=== PATIENT | male | born 1955 | race Caucasian/White ===

== ENCOUNTER 2018-08-07 14:09 | Inpatient (IN) ==
[2018-08-07] MEDS ORDERED: 0.9 % Sodium Chloride 1,000 ML IVC ONE (14:16)
[2018-08-07] MEDS ORDERED: *HR* FentaNYL (PF) 100 MCG/2 ML VIAL IVP ONE (14:16)
[2018-08-07] MEDS ORDERED: Ondansetron 4 MG/2 ML VIAL IVP ONE (14:16)
--- NOTE | 2018-08-07 14:36 | Emergency Department Note ---
Disposition Clinical Impression: Abdominal pain, Vomiting, Ileus, unspecified Disposition: Admitted As Inpatient Condition: Fair Forms: ED Satisfaction Letter, Work/School Release Time of Disposition: 15:46 General Adult HPI - General Chief complaint: ED Abdominal Pain Stated complaint: SBO Time Seen by Provider: 08/07/18 14:15 Source: patient Limitations: no limitations - History of Present Illness Pain Scale: 8 Past Medical History - Past Medical History Medical history: Reports: diabetes, hypertension, renal disease Psychiatric history: Reports: depression, other - Social History Smoking Status: Never smoker Alcohol use: Reports: none Drug use: Reports: none Physical Exam - General Limitations: no limitations General appearance: alert, in no apparent distress Course Vital Signs Temperature 97.5 F L 08/07/18 14:13 Pulse Rate 93 08/07/18 14:13 Respiratory Rate 18 08/07/18 14:13 Blood Pressure 125/82 08/07/18 14:13 O2 Sat by Pulse Oximetry 97 08/07/18 14:13 Temperature 97.5 F L 08/07/18 14:13 Pulse Rate 96 08/07/18 15:26 Respiratory Rate 20 08/07/18 15:26 Blood Pressure 114/79 08/07/18 15:26 O2 Sat by Pulse Oximetry 96 08/07/18 15:26 Oxygen Delivery Oxygen Delivery Room Air Medical Decision Making - Lab Data Result diagrams: 08/07/18 14:25 08/07/18 14:25 Lab Results 08/07/18 08/07/18 08/07/18 Range/Units 14:25 14:25 14:25 WBC 8.8 (4.3-11.1) K/mcL RBC 4.01 L (4.19-5.50) M/mcL Hgb 12.7 L (12.9-16.9) g/dL Hct 37.9 (37.5-50.1) % MCV 94.5 (83.0-100.0) fL MCH 31.7 (28.0-33.3) pg MCHC 33.5 (31.6-35.5) g/dL RDW 13.6 (11.5-14.5) % Plt Count 116 L (140-400) K/mcL MPV 10.6 (9.4-12.4) fL Immature Gran % 0.6 (0-4) % Seg Neutrophils % 60.8 % Lymphocytes % 27.8 % Monocytes % 9.8 % Eosinophils % 0.9 % Basophils % 0.1 % Neutrophils # 5.4 (1.6-8.9) K/mcL Lymphocytes # 2.5 (0.6-4.6) K/mcL Monocytes # 0.9 (0.0-1.3) K/mcL Eosinophils # 0.1 (0.0-0.6) K/mcL Basophils # 0.0 (0.0-0.2) K/mcL Sodium 139 (136-145) mEq/L Potassium 4.3 (3.5-5.1) mEq/L Chloride 103 (98-107) mEq/L Carbon Dioxide 25 (23-29) mEq/L BUN 60 H (8-23) mg/dL Creatinine 2.84 H (0.70-1.30) mg/dL Est GFR ( Amer) 28 L (> 60) Est GFR (Non-Af Amer) 23 L (> 60) BUN/Creatinine Ratio 21 (6-26) Glucose 119 H (70-105) mg/dL Calculated Osmolality 306 H (280-300) Lactic Acid 2.0 (0.5-2.2) mmol/L Calcium 9.2 (8.6-10.3) mg/dL Creatine Kinase 234 H (30-223) Units/L Lipase 20 (11-82) Units/L Attestation Statement - Attestation Attestation: I, Miguelangel Pierson DO, examined this patient [id number] and my medical decision-making was reviewed with Dr. David Kwan, Resident Physician. I agree with the documented findings, disposition and treatment plan as described except to the extent set forth below. Please see my progress notes for details. 63-year-old male presents emergency room from the [facility] for evaluation of abdominal pain and distention. He seen at this morning secondary to belly pain and had a CT scan completed that showed dilated bowel loop and fluid levels with concern for small bowel obstruction. Patient did have a bowel movement this morning as well as Jojo. Patient is denying chest pain shortness of breath headache vision changes nausea vomiting or diarrhea. Patient did have one episode of nausea and vomiting prior to coming in today but otherwise has not had any prior to. Vital signs are stable on presentation. Patient is resting in the bed in no apparent distress. Lungs are clear heart is regular abdomen is distended with tenderness noted but no peritoneal symptoms. No positive fluid wave. Bowel sounds are present appear to be normal. Is no guarding or rigidity. No CVA tenderness. Patient sedation was appear to be stable pulses are intact. Patient denies any surgical history of his abdomen. Denies any history of bowel traction. Denies any history of liver disease or other symptoms. Patient will have detailed workup completed and reviewed. Labs including CBC chemistry troponin and liver function testing will be reviewed from the outside facility and urinalysis. CT imaging was reviewed but it does not have a contrasted has indeterminant presentation. Physical exam does not significantly justify bowel obstruction. Patient does have elevated kidney function comparison to previous labs are ordered today so concern is noted for renal insufficiency, vascular related etiology, dehydration, possible abdominal compartment syndrome. Patient's abdomen is distended but not tense. Consultation with surgery will be completed once repeat labs including a lactic acid CPK are resulted and repeat renal function testing. Fluids nausea medication pain medication will be provided as needed. Disposition will also be admission the hospital for continuation of care. See detailed documentation the physical exam, medical intervention, medical decision-making disposition the resident physician's note. No [facility] provider the patient's treatment course at this time. 1525 The on-call surgeon Dr. Nichols was contacted. He agrees this is most likely not a high-grade small bowel obstruction most likely an ileus. Patient's creatinine CPK and lactic acid are resolving or normal. Hospitals will be contacted for medical management of the symptoms and reevaluation. No other acute etiology noted at this point. No other acute concerns or issues no this time. Patient will be admitted for continuation of care and observation. No nasogastric tube is required at this time. The patient has not had any emesis while here in the emergency room.
--- NOTE | 2018-08-07 14:39 | Emergency Department Note ---
Disposition Clinical Impression: Vomiting, Ileus, unspecified Abdominal pain Qualifiers: Abdominal location: generalized Qualified Code(s): R10.84 - Generalized abdominal pain Disposition: Admitted As Inpatient Condition: Fair Forms: ED Satisfaction Letter, Work/School Release Time of Disposition: 15:53 Abdominal Pain HPI - General Chief Complaint: ED Abdominal Pain Stated Complaint: SBO Time Seen by Provider: 08/07/18 14:15 Source: patient, EMS Mode of arrival: EMS Limitations: no limitations Nursing Notes Reviewed: Yes Vital Signs Reviewed: Yes - History of Present Illness HPI Narrative: 63-year-old male presented to the emergency department from the [facility] for evaluation for small bowel obstruction. Patient went there because he is having abdominal pain he is not an inpatient there he lives at home. He said he has been vomiting for approximate 4 days he did not note any Brown or fecal smelling vomit. Patient says the epigastric pain described as 4 out of 10 nonradiating in his epigastrium. Patient has not had any abdominal surgeries. Patient has history of CKd, no cardiac history, hypertension, hypercholesterolemia as well as bipolar is him where he takes risperidone. Patient sent here for further evaluation of the [facility] he currently has no other complaints including no headaches, blurry vision, neck pain, back pain, fever, chest pain, shortness of breath, changes in bowel movement, pain with urination, pain or tingling down the arms or legs. Last bowel movement was this morning which was a normal bowel movement. He is still able to have some flatulence. Pain Scale: 8 All systems ED: reviewed and negative except as stated. Review of Systems: As Per HPI Abdominal Pain PMH - Past Medical History Medical history: Reports: diabetes, hypertension, renal disease Male Surgical History: Reports: no surgical history Psychiatric history: Reports: depression, other - Social History Smoking status: Never smoker Alcohol use: Reports: none Drug use: Reports: none Physical Exam - General Limitations: no limitations General appearance: alert, in no apparent distress - Head Head exam: atraumatic, normocephalic, normal inspection - Eye Eye exam: Present: normal appearance, PERRL, EOMI - ENT ENT exam: normal exam, normal oropharynx, mucous membranes moist - Neck Neck exam: Present: normal inspection, full ROM, trachea midline - Chest Chest inspection: Present: normal inspection, symmetric chest wall rise - Respiratory Respiratory exam: Present: normal lung sounds bilaterally - Cardiovascular Cardiovascular exam: Present: regular rate, normal rhythm, normal heart sounds - Abdominal Exam Abdominal exam: Present: soft, tenderness (Mild in the epigastrium), normal bowel sounds. Absent: distention, guarding, rebound, rigidity - Extremities Exam Extremities exam: Present: normal inspection, full ROM. Absent: tenderness, pedal edema - Back Exam Back exam: Present: normal inspection, full ROM. Absent: tenderness, CVA tenderness (R), CVA tenderness (L) - Neurological Exam Neurological exam: Present: alert, oriented X3 - Skin Skin exam: Present: warm, dry, intact, normal color Course Course Narrative: Will get repeat labs including CBC, BMP, CK, lipase. We will give IV fluids as well as fentanyl and Zofran. Depending on results we will contact surgery for recommendations for scans. Patient's labs were done labs reviewed from there include white blood cell count of 8.6, hemoglobin 14.7 sodium 137 potassium 4.9 glucose 176 creatinine 3.13 CO2 26 chloride 100 be 158 these were all compared with his old ones. Urinalysis was normal troponin negative CK 339 amylase 37 LFTs AST showing 28 ALT 34 alkaline phosphatase 90 albumin 4.1 protein 8.9 calcium 9.4. In the flu test was negative EKG was also the outside hospital showed no normal sinus rhythm report right bundle-branch block no other acute or ischemic changes. No signs of an STEMI - Consultations Consultation #1: Spoke with the on-call surgeon Dr. Nichols he says this is probably ileus not small bowel bowel obstruction but they will see the patient. Consult was placed. He said nothing further is needed at this time. Time: 15:46 Vital Signs Temperature 97.5 F L 08/07/18 14:13 Pulse Rate 93 08/07/18 14:13 Respiratory Rate 18 08/07/18 14:13 Blood Pressure 125/82 08/07/18 14:13 O2 Sat by Pulse Oximetry 97 08/07/18 14:13 Temperature 97.5 F L 08/07/18 14:13 Pulse Rate 96 08/07/18 15:26 Respiratory Rate 20 08/07/18 15:26 Blood Pressure 114/79 08/07/18 15:26 O2 Sat by Pulse Oximetry 96 08/07/18 15:26 Oxygen Delivery Oxygen Delivery Room Air Abdominal Pain - MDM Narrative Medical decision making narrative: 63-year-old male presents to the emergency department for small bowel chart. Presented here from the [place]. All labs reported PR course. We repeated a few labs. There was worry of abdominal compartment syndrome but with patient's lowering CK better in creatinine as well as a normal lactate is very low likely. Patient could have most likely ileus as he does not have a sources there is never had any abdominal surgery there is no signs of any inguinal hernias patient is an umbilical hernia but there is no bowel in that area. He has generalized abdominal tenderness but there is no localized area. We did not repeat the CT scans due to patient's chronic kidney disease. Patient will be admitted. I spoke with the on-call surgeon Dr. Nichols agree with her plan and a consult was placed. He says most likely again is an ileus and did not recommend NG tube. They will see him on the floor. I spoke with the hospitalist Dr. Freitas who agreed to let the patient to their service. Patient is admitted in stable condition. CT scan was done at the [facility] the report is on the patient's chart. The did show air fluid lines with fluid filled loops of bowel no noticeable transition site. This is either small bowel obstruction either complete or partial. - Medical Records Medical records reviewed: Yes I reviewed the patient's medical records. - Lab Data Lab results reviewed: Yes I reviewed the patient's lab results. Result diagrams: 08/07/18 14:25 08/07/18 14:25 Lab Results 08/07/18 08/07/18 08/07/18 Range/Units 14:25 14:25 14:25 WBC 8.8 (4.3-11.1) K/mcL RBC 4.01 L (4.19-5.50) M/mcL Hgb 12.7 L (12.9-16.9) g/dL Hct 37.9 (37.5-50.1) % MCV 94.5 (83.0-100.0) fL MCH 31.7 (28.0-33.3) pg MCHC 33.5 (31.6-35.5) g/dL RDW 13.6 (11.5-14.5) % Plt Count 116 L (140-400) K/mcL MPV 10.6 (9.4-12.4) fL Immature Gran % 0.6 (0-4) % Seg Neutrophils % 60.8 % Lymphocytes % 27.8 % Monocytes % 9.8 % Eosinophils % 0.9 % Basophils % 0.1 % Neutrophils # 5.4 (1.6-8.9) K/mcL Lymphocytes # 2.5 (0.6-4.6) K/mcL Monocytes # 0.9 (0.0-1.3) K/mcL Eosinophils # 0.1 (0.0-0.6) K/mcL Basophils # 0.0 (0.0-0.2) K/mcL Sodium 139 (136-145) mEq/L Potassium 4.3 (3.5-5.1) mEq/L Chloride 103 (98-107) mEq/L Carbon Dioxide 25 (23-29) mEq/L BUN 60 H (8-23) mg/dL Creatinine 2.84 H (0.70-1.30) mg/dL Est GFR ( Amer) 28 L (> 60) Est GFR (Non-Af Amer) 23 L (> 60) BUN/Creatinine Ratio 21 (6-26) Glucose 119 H (70-105) mg/dL Calculated Osmolality 306 H (280-300) Lactic Acid 2.0 (0.5-2.2) mmol/L Calcium 9.2 (8.6-10.3) mg/dL Creatine Kinase 234 H (30-223) Units/L Lipase 20 (11-82) Units/L - Radiology Data Radiology results reviewed: Yes I reviewed the patient's radiology results. - EKG Data EKG attestation: Yes I reviewed and interpreted this EKG. EKG results narrative: EKG done at 1454 review myself and the attending shows sinus rhythm at a rate of 96, OH 165, QRS 155, QTC [address] changes no acute T-wave changes. No signs of any other ischemia. There is a right bundle branch block which is on his old one. No other blocks. No heartstring or hypertrophy. No WPW/ Brugada/HOCM. Otherwise normal EKG. Attestation Statement - Attestation Attestation: I, Miguelangel Pierson DO, examined this patient [id number] and my medical decision-making was reviewed with Dr. David Kwan, Resident Physician. I agree with the documented findings, disposition and treatment plan as described except to the extent set forth below. Please see my progress notes for details.
[2018-08-07 14:42] LABS: Basophils % 0.1 %; Eosinophils # 0.1 K/mcL (0.0-0.6); Eosinophils % 0.9 %; Hematocrit 37.9 % (37.5-50.1); Hemoglobin 12.7 g/dL (12.9-16.9); Immature Granulocytes % 0.6 % (0-4); Lymphocytes # 2.5 K/mcL (0.6-4.6); Lymphocytes % 27.8 %; Mean Corpuscular HGB Conc 33.5 g/dL (31.6-35.5); Mean Corpuscular Hemoglobin 31.7 pg (28.0-33.3); Mean Corpuscular Volume 94.5 fL (83.0-100.0); Mean Platelet Volume 10.6 fL (9.4-12.4); Monocytes # 0.9 K/mcL (0.0-1.3); Monocytes % 9.8 %; Neutrophils # 5.4 K/mcL (1.6-8.9); Platelet Count 116 K/mcL (140-400); Red Blood Count 4.01 M/mcL (4.19-5.50); Red Cell Distribution Width 13.6 % (11.5-14.5); Segmented Neutrophils % 60.8 %
[2018-08-07 15:02] LABS: Calcium 9.2 mg/dL (8.6-10.3); Potassium 4.3 mEq/L (3.5-5.1)
[2018-08-07] MEDS ORDERED: GuaiFENesin Liq 200 MG/10 ML UDC PO PRN (16:19)
[2018-08-07] MEDS ORDERED: Dextrose Gel 15 GM/37.5 ML TUBE PO PRN ×2 (16:22)
[2018-08-07] MEDS ORDERED: Acetaminophen 325 MG TABLET PO PRN (16:22)
[2018-08-07] MEDS ORDERED: *HR* Dextrose 50 % in Water (Syg) 50 ML SYRINGE IVP PRN (16:22)
[2018-08-07] MEDS ORDERED: D5% in Water 1,000 ML IVC PRN (16:22)
[2018-08-07] MEDS ORDERED: Naloxone 0.4 MG/ML INJ IVP PRN (16:22)
[2018-08-07] MEDS ORDERED: 0.9 % Sodium Chloride 1,000 ML IVC SCH (16:30)
[2018-08-07] MEDS ORDERED: Insulin LISPRO 300 UNITS/3 ML VIAL SQ SCH ×2 (16:30→21:00)
--- NOTE | 2018-08-07 16:47 | Internal Med History&Physical ---
<MarlensugeydemetriusTeto conn - Last Filed: 08/07/18 17:45> Date of Encounter: 08/07/18 Time of Encounter: 15:30 Internal Medicine - H&P: HPI Chief complaint: Abdominal pain/N/V Admitted From: Emergency Dept Plans for Post Hospital Care: Home History of present illness: Mr. Rodriguez is a 63 year old male w/PMH of diabetes controlled by oral medication , HTN, HLD, CKD, seasonal allergies, gout, anxiety, and bipolar depression presents from the [facility] w/CC of abominal pain, nausea, and vomiting for the past four days. Pt. denies coffee-ground emesis or stool in emesis. Denies nausea or vomiting today. States he had small bowel movement this morning that was brown and formed. Also reports he has been passing gas through bowels. CT of the abdomen/pelvis at [facility] today shows dilated fluid-filled loops of small bowel with differential air-fluid levels. Findings suggest a high-grade partial versus early complete small bowel obstruction. The majority of L1 dilation is noted within jejunum and probably the proximal ileum. Transition point is probably present within the LLQ where there is surrounding mesenteric engorgement. Pt. denies recent illness, fever, chills, headache, changes in vision, unusual bleeding, chest pain, shortness of breath, dizziness, lightheadedness, numbness , tingling, pre-syncope, or syncope. Past Med Surg Social Fam HX - Past Medical History Source: patient, old records reviewed Medical history: diabetes, hyperlipidemia, hypertension, renal disease, other ( Gout) Psychiatric history: anxiety, depression (Bipolar) - Social History Smoking Status: Never smoker Alcohol use: none Drug use: none Activity Level: Independent ambulation Recent Out of Country Travel Within the Last 8 Weeks: No Exposure or Possible Exposure to Illness During Travel: No - Family History Father Race: Family Member Ethnicity: Non- Living Status: Age at : 86 Cause of : PE Hx Family Cardiac Disorders: Yes (PE) Mother Race: Family Member Ethnicity: Non- Living Status: Age at : 52 Cause of : Throat cancer Hx Family Cancer: Yes (Throat) Brother Race: Family Member Ethnicity: Non- Living Status: Age at : 28 Cause of : Aneurysm Hx Family Cardiac Disorders: Yes (Aneurysm) Sister Race: Family Member Ethnicity: Non- Living Status: Still Living Hx Family Psychosocial Disorders: Yes (Manic depression) Internal Medicine - H&P: Meds Allopurinol [Zyloprim 100 MG] 400 mg PO DAILY 08/07/18 [History] Amoxicillin/Clavulanate [Augmentin] 875 mg PO BIDWM 08/07/18 [History] Cetirizine HCl [Zyrtec] 10 mg PO DAILY 08/07/18 [History] Cholecalciferol (D-3) [Vitamin D] 1,000 unit PO DAILY 08/07/18 [History] Gemfibrozil [Lopid] 300 mg PO BIDWM 08/07/18 [History] GlipiZIDE [Glipizide ER] 10 mg PO BID 08/07/18 [History] Guaifenesin [Cough Syrup] 10 ml PO Q4HR PRN 08/07/18 [History] LORazepam [Ativan] 1 mg PO BID 08/07/18 [History] Lisinopril [Zestril] 10 mg PO DAILY 08/07/18 [History] Loperamide HCl [Anti-Diarrheal] 2 mg PO QID PRN 08/07/18 [History] [place]-3 Fatty Acids [Fish Oil Concentrate] 1,000 mg PO DAILY 08/07/18 [History] Psyllium [Metamucil Fiber Singles Packet] 1 packet PO DAILY 08/07/18 [History] Saxagliptin HCl [Onglyza] 2.5 mg PO DAILY 08/07/18 [History] Terazosin HCl 2 mg PO HS 08/07/18 [History] risperiDONE [Risperdal] 4 mg PO HS 08/07/18 [History] 3 Allergy/AdvReac Type Severity Reaction Status Date / Time No Known Allergies Allergy Verified 08/07/18 16:00 All Systems PM: A 10-system review of systems was performed and is negative for pertinent findings except as documented above in the HPI. - Constitutional Constitutional: no chills, no fever(s), no night sweats - EENT Eyes: no change in vision, no discharge, no pain, no photophobia Ears: no ear discharge, no ear pain, no tinnitus Nose, mouth and throat: no dysphagia, no nasal discharge, no neck pain, no sore throat - Breasts Breasts: as per HPI - Cardiovascular Cardiovascular ROS IM: no chest pain, no diaphoresis, no dyspnea, no lightheadedness, no palpitations, no syncope - Respiratory Respiratory: no cough, no dyspnea, no wheezing, no excessive phlegm production - Gastrointestinal Gastrointestinal: as per HPI, abdominal pain, nausea, vomiting, no diarrhea, no hematemesis, no hematochezia, no melena - Genitourinary Genitourinary ROS male: as per HPI - Musculoskeletal Musculoskeletal ROS IM: no numbness, no tingling - Integumentary Integumentary IM: no rash, no unusual bruising - Neurological Neurological ROS: no confusion, no convulsions, no focal weakness, no numbness, no tingling, no tremor(s) - Psychiatric Psychiatric: as per HPI, anxiety, depression (Bipolar) - Endocrine Endocrine IM: as per HPI - Hematologic/Lymphatic Hematologic/Lymphatic: no easy bruising - Allergic/Immunologic Allergic/Immunologic: as per HPI - Constitutional Vitals: Temp Pulse Resp BP Pulse Ox 97.5 F L 96 20 115/59 96 08/07/18 14:13 08/07/18 15:26 08/07/18 16:19 08/07/18 16:19 08/07/18 15:26 General appearance: Present: cooperative, mild distress (Abdominal discomfort), A&O X 3, pleasant, obese, answers questions appropriately Exam: Patient examined at bedside in ED. Pt. denies nausea or vomiting today. States he had small, formed BM this morning and is passing flatus. Reports mild abdominal pain that is generalized. Pt. denies other complaints at this time. VS : 97.5F temp, HR 93, RR 18, BP 125/82, SPO2 97% on room air. - Head Head exam: Present: atraumatic, normocephalic - Eye Eye exam: Present: PERRL, conjuntiva pink, sclera anicteric Pupils: Present: PERRL - ENT ENT exam: Present: normal exam - Neck Neck exam general surgery: Present: supple, trachea midline. Absent: lymphadenopathy - Respiratory Respiratory exam: Present: CTAB. Absent: accessory muscle use, rales, rhonchi, wheezes - Cardiovascular Cardiovascular exam: Present: RRR, +S1, +S2. Absent: diastolic murmur, gallop, rubs, systolic murmur - GI/Abdominal GI/Abdominal exam: Present: normal bowel sounds, soft, tenderness, no peritoneal signs. Absent: distended - Rectal Rectal exam: Present: deferred - Additional comments: exam deferred. - Extremities Exam Extremities exam: Present: warm, radial pulses palpable and symmetrical. Absent : calf tenderness, cyanotic, pedal edema - Back Exam Back exam: Present: normal inspection - Neurological Exam Neurological exam: Present: alert, CN II-XII intact, oriented X3, no focal deficits. Absent: pronater drift, facial droop, speech deficit - Psychiatric Psychiatric exam: Present: normal affect, normal mood Internal Med - H&P Results - Labs CBC & Chem 7: 08/07/18 14:25 08/07/18 14:25 - EKG Data EKG shows normal: sinus rhythm - EKG Data Prior EKG available for review: yes EKG comments: 08/07/18 16:55 EKG dated 08/07/18 11:57 shows NSR with RBBB and left anterior fascicular block (Bifasicular block). EKG dated 08/07/18 14:54 shows sinus rhythm with sinus sumanth and RBBB with LAFB. - Diagnostic Studies CT scan - abdomen Additional comments: CTA of the abdomen/pelvis today at [facility] without contrast shows dilated fluid- filled loops of small bowel with differential air-fluid levels. Findings suggest a high-grade partial versus early complete small bowel obstruction. Follow-up as recommended. Bladder wall thickening which can be seen with UTI. Other findings such as cholelithiasis and probable choledocholelithiasis as described above. There are gallstones including several stones within the cystic duct or the proximal common bile duct which may reflect choledocholelithiasis. - Assessment and plan (1) Ileus Current Visit: Yes Status: Acute Assessment and plan: Acute ileus versus SBO. CT of the abdomen/pelvis at the [facility] today shows dilated fluid-filled loops of small bowel with differential air fluid levels. Findings suggest a high-grade partial versus early complete small bowel obstruction. Pt. reports having small BM today that was formed and brown. Pt. also reports passing flatus. CT also shows gallstones including several stones within the cystic duct or the proximal common bile duct which may reflect choledocholelithiasis. Tylenol ordered. Will be judicious w/pain medications d/ t current CKD stage 4. Will not do NG tube a this time d/t pts. report of no nausea/vomiting today. NPO except medications and ice chips. Surgery consult ordered in ED and I appreciate the consult and recommendations. Pt. received 1L bolus of 0.9 NS IV fluids in ED and will follow w/100 mLs per hour d/t current renal dysfunction. IVP Zofran and Phenergan for N/V. Pt. discussed w/Dr. Queen who agrees w/plan of care. Pt. is high risk for further morbidity and complications d/t current ileus versus SBO, current cholelithiasis, elevated CK of unknown etiology, hx, and risk factors. Inpatient. (2) Abdominal pain Current Visit: Yes Status: Acute Assessment and plan: Acute abdominal pain for the past several days. CT of the abdomen/pelvis at the [facility] today shows dilated fluid-filled loops of small bowel with differential air fluid levels. Findings suggest a high-grade partial versus early complete small bowel obstruction. CT also shows gallstones including several stones within the cystic duct or the proximal common bile duct which may reflect choledocholelithiasis. Tylenol ordered. Will be judicious w/pain medications d/ t current CKD stage 4. Qualifiers: Abdominal location: generalized Qualified Code(s): R10.84 - Generalized abdominal pain (3) Nausea and vomiting Current Visit: Yes Status: Acute Assessment and plan: Acute nausea and vomiting for the past several days. Pt. denies N/V today. IVP Zofran and Phenergan ordered. Monitor I&O. NPO except medications and ice chips. Qualifiers: Vomiting type: cyclical vomiting Vomiting Intractability: non-intractable Qualified Code(s): G43.A0 - Cyclical vomiting, not intractable (4) Elevated CK Current Visit: Yes Status: Acute Assessment and plan: Acutely elevated CK level of unknown etiology. Blood alcohol level ordered. Troponin series ordered. Continuous cardiac monitoring. Monitor f/u labs. (5) Cholelithiasis Current Visit: Yes Status: Acute Assessment and plan: Acute cholelithiasis on CT of abd/pel at [facility] today which shows gallstones including several stones within the cystic duct of the proximal common bile duct which may reflect choledocholelithiasis. Monitor. Surgery consult placed in ED and I appreciate the consult and recommendations as always. Qualifiers: Cholelithiasis location: bile duct Cholecystitis presence: without cholecystitis Biliary obstruction: without biliary obstruction Qualified Code(s): K80.50 - Calculus of bile duct without cholangitis or cholecystitis without obstruction (6) CKD (chronic kidney disease) stage 4, GFR 15-29 ml/min Current Visit: Yes Status: Chronic Assessment and plan: Hx of CKD. Currently stage 4 w/GFR of 23 and creatinine of 2.84. Pt. received 1L IV fluid bolus in ED. Will follow w/125 mLs/HR. Monitor I&O, daily weight, and f/u labs. (7) HTN (hypertension) Current Visit: Yes Status: Chronic Assessment and plan: Hx of chronic HTN. Monitor pt. and VS. Continue pts. Lisinopril and Terazosin. Qualifiers: Hypertension type: essential hypertension Qualified Code(s): I10 - Essential (primary) hypertension (8) HLD (hyperlipidemia) Current Visit: Yes Status: Chronic Assessment and plan: Hx of chronic HLD. Lipid panel in a.m. labs. Continue pts. Lopid. Qualifiers: Hyperlipidemia type: pure hypercholesterolemia Qualified Code(s): E78.00 - Pure hypercholesterolemia, unspecified; E78.0 - Pure hypercholesterolemia (9) Gout Current Visit: Yes Status: Chronic Assessment and plan: Hx of chronic gout. Continue pts. allopurinol. Qualifiers: Gout site: unspecified site Gout etiology: due to renal impairment Chronicity: chronic Presence of tophus: without tophus Qualified Code(s): M1A.30X0 - Chronic gout due to renal impairment, unspecified site, without tophus (tophi) (10) Anxiety Current Visit: Yes Status: Chronic Assessment and plan: Hx of chronic anxiety. Continue pts. Ativan. (11) Bipolar depression Current Visit: Yes Status: Chronic Assessment and plan: Hx of bipolar depression. Continue pts. Risperdal. (12) DVT prophylaxis Current Visit: Yes Status: Acute Assessment and plan: Bilateral SCDs on LEs for DVT prophylaxis d/t possible surgical intervention. (13) Diabetes Current Visit: Yes Status: Chronic Assessment and plan: Hx of chronic diabetes controlled w/oral medications. Will hold oral medications and administer low-dose correction sliding scale insulin Q6HR and BG checks Q6HR d/t NPO status. A1c in a.m. labs. Qualifiers: Diabetes mellitus type: type 2 Diabetes mellitus intermediate insulin use: without ocean transportation intermediary use Diabetes mellitus complication status: with kidney complications Diabetes mellitus complication detail: with chronic kidney disease Chronic kidney disease stage: stage 4 (severe) Qualified Code(s): E11.22 - Type 2 diabetes mellitus with diabetic chronic kidney disease; N18.4 - Chronic kidney disease, stage 4 (severe) - Time Spent With Patient Total time spent is greater than 50% in coordination of care (as documented) at patient's floor/unit and/or counseling patient: Greater than 35 minutes <Michaelle Queen - Last Filed: 08/07/18 18:36> Date of Encounter: 08/07/18 Internal Medicine - H&P: HPI History of present illness: Mr. Rodriguez is a 63 year old male All Systems PM: A 10-system review of systems was performed and is negative for pertinent findings except as documented above in the HPI. - Constitutional Vitals: Temp Pulse Resp BP Pulse Ox 97.5 F L 96 20 115/59 96 08/07/18 14:13 08/07/18 15:26 08/07/18 16:19 08/07/18 16:19 08/07/18 15:26 Internal Med - H&P Results - Labs CBC & Chem 7: 08/07/18 14:25 08/07/18 14:25 - Assessment and plan (1) Abdominal pain Current Visit: Yes Status: Acute Qualifiers: Abdominal location: generalized Qualified Code(s): R10.84 - Generalized abdominal pain (2) Ileus Current Visit: Yes Status: Acute (3) Nausea and vomiting Current Visit: Yes Status: Acute Qualifiers: Vomiting type: cyclical vomiting Vomiting Intractability: non-intractable Qualified Code(s): G43.A0 - Cyclical vomiting, not intractable (4) Elevated CK Current Visit: Yes Status: Acute (5) CKD (chronic kidney disease) stage 4, GFR 15-29 ml/min Current Visit: Yes Status: Chronic (6) HTN (hypertension) Current Visit: Yes Status: Chronic Qualifiers: Hypertension type: essential hypertension Qualified Code(s): I10 - Essential (primary) hypertension (7) HLD (hyperlipidemia) Current Visit: Yes Status: Chronic Qualifiers: Hyperlipidemia type: pure hypercholesterolemia Qualified Code(s): E78.00 - Pure hypercholesterolemia, unspecified; E78.0 - Pure hypercholesterolemia (8) Cholelithiasis Current Visit: Yes Status: Acute Qualifiers: Cholelithiasis location: bile duct Cholecystitis presence: without cholecystitis Biliary obstruction: without biliary obstruction Qualified Code(s): K80.50 - Calculus of bile duct without cholangitis or cholecystitis without obstruction (9) Gout Current Visit: Yes Status: Chronic Qualifiers: Gout site: unspecified site Gout etiology: due to renal impairment Chronicity: chronic Presence of tophus: without tophus Qualified Code(s): M1A.30X0 - Chronic gout due to renal impairment, unspecified site, without tophus (tophi) (10) Anxiety Current Visit: Yes Status: Chronic (11) Bipolar depression Current Visit: Yes Status: Chronic (12) DVT prophylaxis Current Visit: Yes Status: Acute (13) Diabetes Current Visit: Yes Status: Chronic Qualifiers: Diabetes mellitus type: type 2 Diabetes mellitus ocean transportation intermediary insulin use: without intermediate use Diabetes mellitus complication status: with kidney complications Diabetes mellitus complication detail: with chronic kidney disease Chronic kidney disease stage: stage 4 (severe) Qualified Code(s): E11.22 - Type 2 diabetes mellitus with diabetic chronic kidney disease; N18.4 - Chronic kidney disease, stage 4 (severe) - Time Spent With Patient Total time spent is greater than 50% in coordination of care (as documented) at patient's floor/unit and/or counseling patient: - Attending Attestation I have personally performed a face to face evaluation on this patient. I have reviewed and agree with the care plan. History and Exam by me shows: patient was seen and examined at bedside reports that his abdominal pain has nearly resolved, denies N/V. did report a small BM earlier today. denies RUQ abdominal pain. does report having flatus VSS General: Patient is alert, oriented, no acute distress, morbidly obese Head: atraumatic, normocephalic, multiple skin tags on the face Eye: normal appearance, PERRL, no scleral icterus, no conjunctival injection ENT: mucous membranes moist, normal external ear exam Neck: normal inspection, trachea midline, full ROM, no carotid bruits Chest: normal inspection, symmetric chest rise Respiratory: decreased breath sounds secondary to body habitus Good respiratory effort. Bilateral breath sounds are clear without wheezing, crackles, or rhonchi. Cardiovascular: distant heart sounds secondary to body habitus, Regular rate and rhythm. s1 and s2 No clicks, rubs, gallops, or murmors. Abdomen: BS+ve and hypoactive, obese, distended, no rebound, negative shultz sign musculoskeletal: Spontaneously moving all extremities. no edema, no calf tenderness Skin: warm, dry, intact. Neuro: Alert Sensation light touch intact. Cranial nerves 2-12 is intact. no focal deficit Psych: Patient's affect is normal CT A/P performed at the [facility] CT of the abdomen/pelvis at the [facility] today shows dilated fluid-filled loops of small bowel with differential air fluid levels. CT also shows gallstones including several stones within the cystic duct or the proximal common bile duct which may reflect choledocholelithiasis. abdominal pain secondary to ileus rule out obstruction cholelithiasis with stones in cystic duct or proximal common bile duct obesity CKD HTN HLD Bipolar depression and anxiety surgery was consulted in the ED by the ED physician for the CT scan findings and recommended supportive management will send LFTs, lipase, RUQ, magensium, Po4 stat start zosyn if the RUQ shoes choledocolithiasis or evidence of obstruction - call GI stat - if no GI/ ERCP available will need to be transferred to tertiary center serial abdominal exams follow and corrrect electrolytes rest of the management as above Discussed plan with eTto Rao NP
[2018-08-07] MEDS ORDERED: Ondansetron 4 MG/2 ML VIAL IVP PRN (17:00)
[2018-08-07] MEDS ORDERED: *HR* Promethazine 25 MG/ML VIAL IVP PRN (17:01)
[2018-08-07] MEDS: 0.9 % Sodium Chloride 1,000 ML IVC SCH (17:41)
[2018-08-07] MEDS: Insulin LISPRO 300 UNITS/3 ML VIAL SQ SCH ×2 (17:50→23:45)
[2018-08-07 18:04] LABS: Ethanol < 10 mg/dL (Less than 10)
[2018-08-07 18:05] LABS: Troponin I < 0.03 ng/mL (< 0.04)
[2018-08-07 18:18] LABS: Thyroid Stimulating Hormone 0.677 mcIU/mL (0.340-5.600)
[2018-08-07 18:28] LABS: Alanine Aminotransferase 23 Units/L (7-52); Albumin 4.3 g/dL (3.5-5.7); Albumin/Globulin Ratio 1.6 (1.1-2.2); Alkaline Phosphatase 70 Units/L (34-104); Aspartate Amino Transferase 17 Units/L (13-39); Bilirubin,Direct 0.4 mg/dL (0.0-0.2); Bilirubin,Indirect 0.6 mg/dL (0.0-1.2); Globulin 2.7 g/dL (2.4-3.5)
[2018-08-07] MEDS: risperiDONE 1 MG TABLET PO SCH (20:32)
[2018-08-07] MEDS: *HR* LORazepam 1 MG TABLET PO SCH (20:35)
[2018-08-07] MEDS: Piperacillin/Tazobactam 3.375 GM in 0.9 % Sodium Chloride Mini Bag 100 ML IVPB SCH (23:51)
[2018-08-08] MEDS: 0.9 % Sodium Chloride 1,000 ML IVC SCH ×3 (04:28→23:55)
[2018-08-08 05:46] LABS: Basophils % 0.3 %; Eosinophils # 0.2 K/mcL (0.0-0.6); Hematocrit 33.7 % (37.5-50.1); Immature Granulocytes % 0.4 % (0-4); Lymphocytes # 2.7 K/mcL (0.6-4.6); Lymphocytes % 34.9 %; Mean Corpuscular Hemoglobin 31.5 pg (28.0-33.3); Mean Corpuscular Volume 98.3 fL (83.0-100.0); Mean Platelet Volume 10.9 fL (9.4-12.4); Monocytes # 0.7 K/mcL (0.0-1.3); Monocytes % 9.5 %; Platelet Count 102 K/mcL (140-400); Red Blood Count 3.43 M/mcL (4.19-5.50); Red Cell Distribution Width 13.8 % (11.5-14.5); Segmented Neutrophils % 51.9 %
[2018-08-08 05:47] LABS: Hemoglobin 10.8 g/dL (12.9-16.9)
[2018-08-08 06:05] LABS: Albumin 3.7 g/dL (3.5-5.7); Albumin/Globulin Ratio 1.5 (1.1-2.2); Bilirubin,Total 0.9 mg/dL (0.3-1.0); Calcium 8.3 mg/dL (8.6-10.3); Chol/HDL Ratio 6.4 (0-4.9); Globulin 2.4 g/dL (2.4-3.5); Magnesium 1.6 mg/dL (1.6-2.6); Potassium 4.3 mEq/L (3.5-5.1); Total Protein 6.1 g/dL (6.4-8.9)
[2018-08-08] MEDS: Insulin LISPRO 300 UNITS/3 ML VIAL SQ SCH ×3 (06:08→18:17)
[2018-08-08 08:38] LABS: Estimated Average Glucose 192 mg/dl; Hemoglobin A1C 8.3 %
[2018-08-08] MEDS ORDERED: (Saxagliptin Hcl [Onglyza] 2.5 MG) PO SCH (09:00)
[2018-08-08] MEDS: *HR* LORazepam 1 MG TABLET PO SCH ×2 (09:31→21:05)
[2018-08-08] MEDS: Loratadine 10 MG TABLET PO SCH (09:31)
[2018-08-08] MEDS: Cholecalciferol (D-3) 1,000 UNIT TABLET PO SCH (09:31)
[2018-08-08] MEDS: Piperacillin/Tazobactam 3.375 GM in 0.9 % Sodium Chloride Mini Bag 100 ML IVPB SCH ×3 (09:33→23:54)
--- NOTE | 2018-08-08 09:37 | Internal Med Progress Note ---
Hospitalist Progress Note - Encounter Date of Encounter: 08/08/18 Time of Encounter: 11:00 - Subjective Interval History: Patient who presented with abdominal pain and nausea/vomiting for several days found to have concerns for ileus versus small bowel obstruction on imaging in addition to cholelithiasis. - Exam Vitals: Temp Pulse Resp BP Pulse Ox 98.2 F 85 18 108/68 93 08/08/18 09:29 08/08/18 09:29 08/08/18 09:29 08/08/18 09:29 08/08/18 09:29 Exam: Gen: NAD Abd: distended, tender CVS: RRR, no m,r,g Resp: CTAB - Assessment and Plan (1) Abdominal pain Current Visit: Yes Status: Acute Assessment and Plan: Patient presented with acute abdominal pain for the past several days. CT of the abdomen/pelvis at the [facility] on 08/07/18 showed dilated fluid-filled loops of small bowel with differential air fluid levels with findings suggest a high-grade partial versus early complete small bowel obstruction. In addition CT of the abdomen/pelvis also showed gallstones including several stones within the cystic duct or the proximal common bile duct which may reflect choledocholelithiasis. General surgery was consulted from the ER on 08/07/18 and appreciate recommendations (2) Cholelithiasis Current Visit: Yes Status: Acute Assessment and Plan: CT of the abdomen/pelvis also showed gallstones including several stones within the cystic duct or the proximal common bile duct which may reflect choledocholelithiasis. General surgery was consulted from the ER on 08/07/18 and appreciate recommendations (3) Nausea and vomiting Current Visit: Yes Status: Acute Assessment and Plan: Patient with nausea and vomiting for the past several days due to the above. Continue IVP Zofran and Phenergan. (4) CKD (chronic kidney disease) stage 4, GFR 15-29 ml/min Current Visit: Yes Status: Chronic Assessment and Plan: Serum creatinine 2.82 this morning down from 2.84 on yesterday. Continue IV fluids Will continue to monitor (5) HTN (hypertension) Current Visit: Yes Status: Chronic Assessment and Plan: Controlled; continue Lisinopril and Terazosin. (6) HLD (hyperlipidemia) Current Visit: Yes Status: Chronic Assessment and Plan: Continue Lopid. (7) Gout Current Visit: Yes Status: Chronic Assessment and Plan: Continue allopurinol. (8) Diabetes Current Visit: Yes Status: Chronic Assessment and Plan: Hemoglobin A1c 8.3 Continue holding oral medications and coverage with low-dose correction sliding scale (9) Mood disorder Current Visit: Yes Status: Acute Assessment and Plan: Stable; continue home medications (10) DVT prophylaxis Current Visit: Yes Status: Acute Assessment and Plan: \Bilateral SCDs on LEs for DVT prophylaxis d/t possible surgical intervention. - Time Spent with Patient Total time spent is greater than 50% in coordination of care (as documented) at patient's floor/unit and/or counseling patient: Internal Medicine: Result - Labs CBC & Chem 7: 08/08/18 05:06 08/08/18 05:06 Labs: Short CBC 08/08/18 Range/Units 05:06 WBC 7.7 (4.3-11.1) K/mcL Hgb 10.8 L D (12.9-16.9) g/dL Hct 33.7 L (37.5-50.1) % Plt Count 102 L (140-400) K/mcL Neutrophils # 4.0 (1.6-8.9) K/mcL BMP 08/08/18 05:06 Sodium 138 Potassium 4.3 Chloride 107 Carbon Dioxide 22 L BUN 60 H Creatinine 2.82 H Glucose 72 Calcium 8.3 L Cardiac Enzymes 08/07/18 08/08/18 Range/Units 23:38 05:06 Troponin I < 0.03 < 0.03 (< 0.04) ng/mL Liver Function 08/08/18 Range/Units 05:06 Total Bilirubin 0.9 (0.3-1.0) mg/dL AST 15 (13-39) Units/L ALT 18 (7-52) Units/L Alkaline Phosphatase 60 (34-104) Units/L Albumin 3.7 (3.5-5.7) g/dL Consult Discharge Plan - Plan Referrals: [facility]Primary Care Provider[facility] - Jose Balderas, DIRECTOR OF ELEMENTARY EDUCATION [Family Provider] - (1) Abdominal pain Qualifiers: Abdominal location: generalized Qualified Code(s): R10.84 - Generalized abdominal pain (2) Cholelithiasis Qualifiers: Cholelithiasis location: bile duct Cholecystitis presence: without cholecystitis Biliary obstruction: without biliary obstruction Qualified Code( s): K80.50 - Calculus of bile duct without cholangitis or cholecystitis without obstruction (3) Nausea and vomiting Qualifiers: Vomiting type: cyclical vomiting Vomiting Intractability: non-intractable Qualified Code(s): G43.A0 - Cyclical vomiting, not intractable (5) HTN (hypertension) Qualifiers: Hypertension type: essential hypertension Qualified Code(s): I10 - Essential (primary) hypertension (6) HLD (hyperlipidemia) Qualifiers: Hyperlipidemia type: pure hypercholesterolemia Qualified Code(s): E78.00 - Pure hypercholesterolemia, unspecified; E78.0 - Pure hypercholesterolemia (7) Gout Qualifiers: Gout site: unspecified site Gout etiology: due to renal impairment Chronicity: chronic Presence of tophus: without tophus Qualified Code(s): M1A.30X0 - Chronic gout due to renal impairment, unspecified site, without tophus (tophi) (8) Diabetes Qualifiers: Diabetes mellitus type: type 2 Diabetes mellitus termite treater insulin use: without nursing home use Diabetes mellitus complication status: with kidney complications Diabetes mellitus complication detail: with chronic kidney disease Chronic kidney disease stage: stage 4 (severe) Qualified Code(s): E11.22 - Type 2 diabetes mellitus with diabetic chronic kidney disease; N18.4 - Chronic kidney disease, stage 4 (severe)
--- NOTE | 2018-08-08 13:52 | General Surgery Consult Note ---
Date of Encounter: 08/08/18 Time of Encounter: 13:44 Assessment and Plan (1) Ileus Current Visit: Yes Status: Acute Most likely ileus v partial bowel bowel obstruction, clinically improving - plan for SBFT tomorrow - clears diet - supportive care and pain management - serial abdominal exams Surgery will continue to follow (2) Cholelithiasis Current Visit: Yes Status: Acute Not most likely cause of patient diffuse abdominal pain but must be ruled out - agree with need for Liver US- disappointed it has not been completed after one day and RNs attempts to contact US team Qualifiers: Cholelithiasis location: bile duct Cholecystitis presence: without cholecystitis Biliary obstruction: without biliary obstruction Qualified Code(s): K80.50 - Calculus of bile duct without cholangitis or cholecystitis without obstruction History of Present Illness Consult date: 08/07/18 Reason for consult: abdominal pain Requesting physician: Bassam Haney History of present illness: 63 y/o male history of mood disorder and DM presented to ED from [place] for i ncreased abdominal pain and distension. Onset 2 weeks ago slowly progressed untill vomited Thursday morning. Pain is diffusely crampy and somtoems sharp trigger by eating. His nausea has resolved since admit but was last able to tolerate a meals on Thursday. His last bowel movement was yesterday with out pain or change in color or character. At [place] CT showed air fluid levels that could represent ileus or partial small bowel obstruction . Also showed gallstones that may be in cystic duct or common duct - but normal liver enzymes. He has remained NPO but has not required an NG tube. He has been treated with IVF and zosyn. PMHx includes CKD, gout and DM and mood disorder . He has no history of abdominal surgery but lumpectomy from R breast with out reaction to anesthesia. Family history includes grandfather with history of colitisis Past Med Surg Social Fam HX - Past Medical History Medical history: diabetes, hyperlipidemia, hypertension, renal disease, other (Gout) Psychiatric history: anxiety, depression (Bipolar) - Social History Smoking Status: Never smoker Smokeless Tobacco Status: No Alcohol use: none Drug use: none - Family History Father Race: Family Member Ethnicity: Non- Living Status: Age at : 86 Cause of : PE Hx Family Cardiac Disorders: Yes (PE) Mother Race: Family Member Ethnicity: Non- Living Status: Age at : 52 Cause of : Throat cancer Hx Family Cancer: Yes (Throat) Brother Race: Family Member Ethnicity: Non- Living Status: Age at : 28 Cause of : Aneurysm Hx Family Cardiac Disorders: Yes (Aneurysm) Sister Race: Family Member Ethnicity: Non- Living Status: Still Living Hx Family Psychosocial Disorders: Yes (Manic depression) Medications and Allergies Allopurinol [Zyloprim 100 MG] 400 mg PO DAILY 08/07/18 [History] Amoxicillin/Clavulanate [Augmentin] 875 mg PO BIDWM 08/07/18 [History] Cetirizine HCl [Zyrtec] 10 mg PO DAILY 08/07/18 [History] Cholecalciferol (D-3) [Vitamin D] 1,000 unit PO DAILY 08/07/18 [History] Gemfibrozil [Lopid] 300 mg PO BIDWM 08/07/18 [History] GlipiZIDE [Glipizide ER] 10 mg PO BID 08/07/18 [History] Guaifenesin [Cough Syrup] 10 ml PO Q4HR PRN 08/07/18 [History] LORazepam [Ativan] 1 mg PO BID 08/07/18 [History] Lisinopril [Zestril] 10 mg PO DAILY 08/07/18 [History] Loperamide HCl [Anti-Diarrheal] 2 mg PO QID PRN 08/07/18 [History] [place]-3 Fatty Acids [Fish Oil Concentrate] 1,000 mg PO DAILY 08/07/18 [History] Psyllium [Metamucil Fiber Singles Packet] 1 packet PO DAILY 08/07/18 [History] Saxagliptin HCl [Onglyza] 2.5 mg PO DAILY 08/07/18 [History] Terazosin HCl 2 mg PO HS 08/07/18 [History] risperiDONE [Risperdal] 4 mg PO HS 08/07/18 [History] Allergy/AdvReac Type Severity Reaction Status Date / Time No Known Allergies Allergy Verified 08/07/18 16:00 Review of Systems All systems PM: The remainder of the systems were reviewed and are negative - Constitutional no chills, no fever(s) - EENT Nose, mouth and throat: no disequilibrium, no headache(s) - Cardiovascular no chest pain, no irregular heart rhythm, no palpitations - Respiratory no cough, no dyspnea, no wheezing - Gastrointestinal abdominal pain, cramping, excessive flatus, vomiting, no change in bowel habits, no change in stool character, no coffee ground emesis, no constipation, no diarrhea, no heartburn, no melena - Genitourinary no dysuria, no urinary frequency, no urinary incontinence - Musculoskeletal no numbness, no tingling - Neurological no confusion, no loss of vision General Surgery Exam Initial Vital Signs Temp Pulse Resp BP Pulse Ox 97.5 F L 93 18 125/82 97 08/07/18 14:13 08/07/18 14:13 08/07/18 14:13 08/07/18 14:13 08/07/18 14:13 - General physical appearance well developed, well nourished, no distress, obese - Eyes normal ocular movement - ENT normal pinna, normal nares, normal mucosa - Respiratory normal expansion, normal respiratory effort wheezing: bilateral - Cardiovascular Cardiovascular exam: Present: RRR, no murmurs/rubs/gallops - Abdomen Abdomen general surgery: Present: bowel sounds present, soft Abdominal Tenderness: Present: RUQ (worse), diffusely Hernia: Present: reducible (but painful), umbilical - Integumentary Integumentary general surgery: Present: warm and dry, no abnormal pigmentation. Absent: diaphoresis - Neurologic Present: CN 2-12 grossly intact, normal coordination, normal sensation - Musculoskeletal Present: normal gait, normal posture - Psychiatric Psychiatric general surgery: Present: A&Ox3, other (flat affect, slowed speech) Exam Initial Vital Signs Temp Pulse Resp BP Pulse Ox 97.5 F L 93 18 125/82 97 08/07/18 14:13 08/07/18 14:13 08/07/18 14:13 08/07/18 14:13 08/07/18 14:13 Results - Labs 08/08/18 05:06 08/08/18 05:06 Abnormal lab results RBC 3.43 M/mcL (4.19-5.50) L 08/08/18 05:06 Hgb 10.8 g/dL (12.9-16.9) L D 08/08/18 05:06 Hct 33.7 % (37.5-50.1) L 10/14/18 05:06 Plt Count 102 K/mcL (140-400) L 08/08/18 05:06 Carbon Dioxide 22 mEq/L (23-29) L 08/08/18 05:06 BUN 60 mg/dL (8-23) H 08/08/18 05:06 Creatinine 2.82 mg/dL (0.70-1.30) H 08/08/18 05:06 Est GFR ( Amer) 28 (> 60) L 08/08/18 05:06 Est GFR (Non-Af Amer) 23 (> 60) L 08/08/18 05:06 Hemoglobin A1c 8.3 % (-5.6) H 08/08/18 05:06 Calculated Osmolality 301 (280-300) H 08/08/18 05:06 Calcium 8.3 mg/dL (8.6-10.3) L 08/08/18 05:06 Direct Bilirubin 0.4 mg/dL (0.0-0.2) H 08/07/18 17:26 Creatine Kinase 234 Units/L (30-223) H 08/07/18 14:25 Serum Total Protein 6.1 g/dL (6.4-8.9) L 08/08/18 05:06 Triglycerides 217 mg/dL (< 150) H 08/08/18 05:06 VLDL Cholesterol, Calc 43 mg/dL (< 31) H 08/08/18 05:06 HDL Cholesterol 19 mg/dL (40-59) L 08/08/18 05:06 Cholesterol/HDL Ratio 6.4 (0-4.9) H 08/08/18 05:06 Diabetes panel 08/08/18 08/08/18 Range/Units 05:06 05:06 Sodium 138 (136-145) mEq/L Potassium 4.3 (3.5-5.1) mEq/L Chloride 107 (98-107) mEq/L Carbon Dioxide 22 L (23-29) mEq/L BUN 60 H (8-23) mg/dL Creatinine 2.82 H (0.70-1.30) mg/dL Glucose 72 (70-105) mg/dL Hemoglobin A1c 8.3 H ( - 5.6) % Calcium 8.3 L (8.6-10.3) mg/dL AST 15 (13-39) Units/L ALT 18 (7-52) Units/L Alkaline Phosphatase 60 (34-104) Units/L Albumin 3.7 (3.5-5.7) g/dL Triglycerides 217 H (< 150) mg/dL HDL Cholesterol 19 L (40-59) mg/dL Calcium panel 08/08/18 Range/Units 05:06 Calcium 8.3 L (8.6-10.3) mg/dL Albumin 3.7 (3.5-5.7) g/dL Pituitary panel 08/08/18 Range/Units 05:06 Sodium 138 (136-145) mEq/L Potassium 4.3 (3.5-5.1) mEq/L Chloride 107 (98-107) mEq/L Carbon Dioxide 22 L (23-29) mEq/L BUN 60 H (8-23) mg/dL Creatinine 2.82 H (0.70-1.30) mg/dL Glucose 72 (70-105) mg/dL Calcium 8.3 L (8.6-10.3) mg/dL Adrenal panel 08/08/18 Range/Units 05:06 Sodium 138 (136-145) mEq/L Potassium 4.3 (3.5-5.1) mEq/L Chloride 107 (98-107) mEq/L Carbon Dioxide 22 L (23-29) mEq/L BUN 60 H (8-23) mg/dL Creatinine 2.82 H (0.70-1.30) mg/dL Glucose 72 (70-105) mg/dL Calcium 8.3 L (8.6-10.3) mg/dL Total Bilirubin 0.9 (0.3-1.0) mg/dL AST 15 (13-39) Units/L ALT 18 (7-52) Units/L Alkaline Phosphatase 60 (34-104) Units/L Albumin 3.7 (3.5-5.7) g/dL All other labs normal. Consult Discharge Plan - Plan Referrals: Jose Balderas CNP [Family Provider] - [facility] [Primary Care Provider] -
[2018-08-08] MEDS: risperiDONE 1 MG TABLET PO SCH (21:04)
[2018-08-09] MEDS: Insulin LISPRO 300 UNITS/3 ML VIAL SQ SCH ×4 (05:36→16:40)
[2018-08-09 05:50] LABS: Basophils % 0.3 %; Mean Platelet Volume 10.4 fL (9.4-12.4)
[2018-08-09 05:52] LABS: Eosinophils # 0.3 K/mcL (0.0-0.6); Eosinophils % 4.1 %; Hematocrit 34.6 % (37.5-50.1); Hemoglobin 11.1 g/dL (12.9-16.9); Immature Granulocytes % 0.7 % (0-4); Immature Platelets 2.9 % (1.1-6.1); Lymphocytes # 1.8 K/mcL (0.6-4.6); Lymphocytes % 29.2 %; Mean Corpuscular HGB Conc 32.1 g/dL (31.6-35.5); Mean Corpuscular Hemoglobin 31.4 pg (28.0-33.3); Mean Corpuscular Volume 97.7 fL (83.0-100.0); Monocytes # 0.4 K/mcL (0.0-1.3); Monocytes % 6.6 %; Neutrophils # 3.6 K/mcL (1.6-8.9); Platelet Count 102 K/mcL (140-400); Red Blood Count 3.54 M/mcL (4.19-5.50); Red Cell Distribution Width 13.8 % (11.5-14.5); Segmented Neutrophils % 59.1 %
[2018-08-09 06:11] LABS: Albumin 3.9 g/dL (3.5-5.7); Albumin/Globulin Ratio 1.4 (1.1-2.2); Bilirubin,Total 0.9 mg/dL (0.3-1.0); Calcium 8.9 mg/dL (8.6-10.3); Globulin 2.7 g/dL (2.4-3.5); Potassium 4.3 mEq/L (3.5-5.1); Total Protein 6.6 g/dL (6.4-8.9)
[2018-08-09] MEDS: *HR* LORazepam 1 MG TABLET PO SCH ×2 (07:57→21:18)
[2018-08-09] MEDS: Loratadine 10 MG TABLET PO SCH (07:57)
[2018-08-09] MEDS: Cholecalciferol (D-3) 1,000 UNIT TABLET PO SCH (07:58)
[2018-08-09] MEDS: Piperacillin/Tazobactam 3.375 GM in 0.9 % Sodium Chloride Mini Bag 100 ML IVPB SCH ×2 (08:00→17:24)
--- NOTE | 2018-08-09 08:42 | Internal Med Progress Note ---
Hospitalist Progress Note - Encounter Date of Encounter: 08/09/18 Time of Encounter: 11:00 - Subjective Interval History: Patient who presented with abdominal pain and nausea/vomiting for several days found to have concerns for ileus versus small bowel obstruction on imaging in addition to cholelithiasis. Patient to go for small bowel follow-through today - Exam Vitals: Temp Pulse Resp BP Pulse Ox 98.8 F 83 16 111/71 91 08/09/18 06:35 08/09/18 06:35 08/09/18 06:35 08/09/18 06:35 08/09/18 06:35 Exam: Gen.: Nonacute distress, alert and oriented 3 ENT: Mucosal membranes moist Respiratory: Lungs are clear to auscultation bilaterally without any wheezing rhonchi or rales Cardiovascular: Normal S1 and S2 regular rate rhythm no murmurs rubs or gallops Abdomen: Soft, nontender and nondistended with positive bowel sounds Extremities: No lower extremity edema Skin: Normal color - Assessment and Plan (1) Abdominal pain Current Visit: Yes Status: Acute Assessment and Plan: Patient presented with acute abdominal pain for the past several days. CT of the abdomen/pelvis at the [place] on 08/07/18 showed dilated fluid-filled loops of small bowel with differential air fluid levels with findings suggest a high-grade partial versus early complete small bowel obstruction. In addition CT of the abdomen/pelvis also showed gallstones including several stones within the cystic duct or the proximal common bile duct which may reflect choledocholelithiasis. General surgery following with recommendations for a small bowel follow-through today (2) Cholelithiasis Current Visit: Yes Status: Acute Assessment and Plan: CT of the abdomen/pelvis also showed gallstones including several stones within the cystic duct or the proximal common bile duct which may reflect choledocholelithiasis. General surgery recommendations for right upper quadrant ultrasound which is pending (3) Nausea and vomiting Current Visit: Yes Status: Acute Assessment and Plan: Patient with nausea and vomiting for the past several days due to the above. Continue IVP Zofran and Phenergan. (4) CKD (chronic kidney disease) stage 4, GFR 15-29 ml/min Current Visit: Yes Status: Chronic Assessment and Plan: Serum creatinine 2.44 this morning down from 2.82. Continue IV fluids Will continue to monitor (5) HTN (hypertension) Current Visit: Yes Status: Chronic Assessment and Plan: Controlled; continue Lisinopril and Terazosin. (6) HLD (hyperlipidemia) Current Visit: Yes Status: Chronic Assessment and Plan: Continue Lopid. (7) Gout Current Visit: Yes Status: Chronic Assessment and Plan: Continue allopurinol. (8) Diabetes Current Visit: Yes Status: Chronic Assessment and Plan: Hemoglobin A1c 8.3 Continue holding oral medications and coverage with low-dose correction sliding scale (9) Mood disorder Current Visit: Yes Status: Acute Assessment and Plan: Stable; continue home medications (10) DVT prophylaxis Current Visit: Yes Status: Acute Assessment and Plan: Bilateral SCDs on LEs for DVT prophylaxis d/t possible surgical intervention. - Time Spent with Patient Total time spent is greater than 50% in coordination of care (as documented) at patient's floor/unit and/or counseling patient: Internal Medicine: Result - Labs CBC & Chem 7: 08/09/18 05:27 08/09/18 05:27 Labs: Short CBC 08/09/18 Range/Units 05:27 WBC 6.1 (4.3-11.1) K/mcL Hgb 11.1 L (12.9-16.9) g/dL Hct 34.6 L (37.5-50.1) % Plt Count 102 L (140-400) K/mcL Neutrophils # 3.6 (1.6-8.9) K/mcL BMP 08/09/18 05:27 Sodium 140 Potassium 4.3 Chloride 110 H Carbon Dioxide 23 BUN 47 H Creatinine 2.44 H Glucose 101 Calcium 8.9 Liver Function 08/09/18 Range/Units 05:27 Total Bilirubin 0.9 (0.3-1.0) mg/dL AST 17 (13-39) Units/L ALT 18 (7-52) Units/L Alkaline Phosphatase 65 (34-104) Units/L Albumin 3.9 (3.5-5.7) g/dL Consult Discharge Plan - Plan Referrals: Jose Balderas, FITTING ROOM OPERATOR [Family Provider] - [facility] [Primary Care Provider] - (1) Abdominal pain Qualifiers: Abdominal location: generalized Qualified Code(s): R10.84 - Generalized abdominal pain (2) Cholelithiasis Qualifiers: Cholelithiasis location: bile duct Cholecystitis presence: without cholecystitis Biliary obstruction: without biliary obstruction Qualified Code( s): K80.50 - Calculus of bile duct without cholangitis or cholecystitis without obstruction (3) Nausea and vomiting Qualifiers: Vomiting type: cyclical vomiting Vomiting Intractability: non-intractable Qualified Code(s): G43.A0 - Cyclical vomiting, not intractable (5) HTN (hypertension) Qualifiers: Hypertension type: essential hypertension Qualified Code(s): I10 - Essential (primary) hypertension (6) HLD (hyperlipidemia) Qualifiers: Hyperlipidemia type: pure hypercholesterolemia Qualified Code(s): E78.00 - Pure hypercholesterolemia, unspecified; E78.0 - Pure hypercholesterolemia (7) Gout Qualifiers: Gout site: unspecified site Gout etiology: due to renal impairment Chronicity: chronic Presence of tophus: without tophus Qualified Code(s): M1A.30X0 - Chronic gout due to renal impairment, unspecified site, without tophus (tophi) (8) Diabetes Qualifiers: Diabetes mellitus type: type 2 Diabetes mellitus shelter insulin use: without shelter use Diabetes mellitus complication status: with kidney complications Diabetes mellitus complication detail: with chronic kidney disease Chronic kidney disease stage: stage 4 (severe) Qualified Code(s): E11.22 - Type 2 diabetes mellitus with diabetic chronic kidney disease; N18.4 - Chronic kidney disease, stage 4 (severe)
--- NOTE | 2018-08-09 09:35 | General Surgery Progress Note ---
Date of Encounter: 08/09/18 Time of Encounter: 09:33 - Assessment and Plan (1) Ileus Current Visit: Yes Status: Acute Clinically improving and imaging seems to indicate ileus over bowel obstruction - SBFT today shows normal transit times indicating no obstruction or ileus- may advance diet to fulls now - was NPO for ultrasound, now start fulls - advance per primary team - received serial abdominal exams - supportive care and pain management as needed - up to chair - consult PT to clear to ambulate tid No surgical intervention indicated at this time. Surgery will follow from a distance. (2) Cholelithiasis Current Visit: Yes Status: Acute Unimpressive clinical exam and normal liver enzymes but CT showed cholethiasis of unknown locations eight common bile or cystic duct - Liver US showed mild gallbladder wall thickening, trace sludge and possible tiny polyp. No dilation of common bile duct Gallbladder pathology unlikely cause of his diffuse abdominal pain Qualifiers: Cholelithiasis location: bile duct Cholecystitis presence: without cholecystitis Biliary obstruction: without biliary obstruction Qualified Code(s): K80.50 - Calculus of bile duct without cholangitis or cholecystitis without obstruction Subjective Patient reports: feels better, pain is less, tolerating liquids well, no flatus, no bowel movement, afebrile Objective Vital Signs - Last 8 Hours Temp Pulse Resp BP Pulse Ox 08/09/18 06:35 98.8 F 83 16 111/71 91 08/09/18 03:49 99.9 F H 95 18 120/77 93 Intake and Output 08/08/18 08/09/18 08/09/18 23:59 07:59 15:59 Intake Total 1100 / 1100 100 / 100 0 / 0 Output Total 375 / 375 0 / 0 Balance 725 / 725 100 / 100 0 / 0 Intake: IV Fluids 1100 / 1100 100 / 100 0.9 % Sodium Chloride 1,000 ML 1000 / 1000 @ 100 mls/hr IVC .Q10H XIANG Rx#: [id number] Zosyn 3.375 GM In 0.9 % Sodium 100 / 100 100 / 100 Chloride (Mini-Bag +) 100 ML @ 25 mls/hr IVPB Q8HR XIANG Rx#: [id number] Oral 0 / 0 0 / 0 0 / 0 Output: Urine 375 / 375 0 / 0 Other: Meal NPO Percent of Meal Consumed 0% # Voids 1 Weight 130 kg Blood Glucose* 82 101 Patient Weight 08/09/18 23:59 Weight 130 kg - General physical appearance well developed, well nourished, no distress - Eyes normal ocular movement - ENT normal pinna, normal nares, normal mucosa - Respiratory normal expansion, normal respiratory effort wheezing: bilateral - Cardiovascular Cardiovascular exam: Present: RRR, no murmurs/rubs/gallops - Abdomen Abdomen: Present: bowel sounds present, soft Abdominal Tenderness: RUQ (mild, no Ceron's sign), LLQ (worse), diffusely Hernia: incarcerated, umbilical - Musculoskeletal normal gait, normal posture, other (sleeping comfortably when I arrived) - Psychiatric oriented to time, oriented to person, oriented to place, speech is normal, memory intact - Labs 08/09/18 05:27 08/09/18 05:27 Diabetes panel 08/09/18 Range/Units 05:27 Sodium 140 (136-145) mEq/L Potassium 4.3 (3.5-5.1) mEq/L Chloride 110 H (98-107) mEq/L Carbon Dioxide 23 (23-29) mEq/L BUN 47 H (8-23) mg/dL Creatinine 2.44 H (0.70-1.30) mg/dL Glucose 101 (70-105) mg/dL Calcium 8.9 (8.6-10.3) mg/dL AST 17 (13-39) Units/L ALT 18 (7-52) Units/L Alkaline Phosphatase 65 (34-104) Units/L Albumin 3.9 (3.5-5.7) g/dL Calcium panel 08/09/18 Range/Units 05:27 Calcium 8.9 (8.6-10.3) mg/dL Albumin 3.9 (3.5-5.7) g/dL Pituitary panel 08/09/18 Range/Units 05:27 Sodium 140 (136-145) mEq/L Potassium 4.3 (3.5-5.1) mEq/L Chloride 110 H (98-107) mEq/L Carbon Dioxide 23 (23-29) mEq/L BUN 47 H (8-23) mg/dL Creatinine 2.44 H (0.70-1.30) mg/dL Glucose 101 (70-105) mg/dL Calcium 8.9 (8.6-10.3) mg/dL Adrenal panel 08/09/18 Range/Units 05:27 Sodium 140 (136-145) mEq/L Potassium 4.3 (3.5-5.1) mEq/L Chloride 110 H (98-107) mEq/L Carbon Dioxide 23 (23-29) mEq/L BUN 47 H (8-23) mg/dL Creatinine 2.44 H (0.70-1.30) mg/dL Glucose 101 (70-105) mg/dL Calcium 8.9 (8.6-10.3) mg/dL Total Bilirubin 0.9 (0.3-1.0) mg/dL AST 17 (13-39) Units/L ALT 18 (7-52) Units/L Alkaline Phosphatase 65 (34-104) Units/L Albumin 3.9 (3.5-5.7) g/dL Consult Discharge Plan - Plan Referrals: Jose Balderas, REGIONAL SAFETY MANAGER [Family Provider] - [facility] [Primary Care Provider] -
[2018-08-09] MEDS: 0.9 % Sodium Chloride 1,000 ML IVC SCH ×2 (09:55→21:17)
[2018-08-09] MEDS ORDERED: Insulin LISPRO 300 UNITS/3 ML VIAL SQ SCH (21:00)
[2018-08-09] MEDS: risperiDONE 1 MG TABLET PO SCH (21:18)
[2018-08-10] MEDS: Piperacillin/Tazobactam 3.375 GM in 0.9 % Sodium Chloride Mini Bag 100 ML IVPB SCH ×2 (01:17→09:37)
[2018-08-10 01:22] LABS: Basophils % 0.3 %; Eosinophils # 0.2 K/mcL (0.0-0.6); Eosinophils % 3.9 %; Hematocrit 32.2 % (37.5-50.1); Hemoglobin 10.4 g/dL (12.9-16.9); Immature Granulocytes % 0.8 % (0-4); Lymphocytes # 2.1 K/mcL (0.6-4.6); Lymphocytes % 34.5 %; Mean Corpuscular HGB Conc 32.3 g/dL (31.6-35.5); Mean Corpuscular Hemoglobin 31.8 pg (28.0-33.3); Mean Corpuscular Volume 98.5 fL (83.0-100.0); Mean Platelet Volume 10.3 fL (9.4-12.4); Monocytes # 0.6 K/mcL (0.0-1.3); Monocytes % 9.4 %; Neutrophils # 3.2 K/mcL (1.6-8.9); Platelet Count 113 K/mcL (140-400); Red Blood Count 3.27 M/mcL (4.19-5.50); Red Cell Distribution Width 13.6 % (11.5-14.5); Segmented Neutrophils % 51.1 %
[2018-08-10 01:43] LABS: Albumin 3.7 g/dL (3.5-5.7); Albumin/Globulin Ratio 1.5 (1.1-2.2); Bilirubin,Total 0.7 mg/dL (0.3-1.0); Calcium 8.8 mg/dL (8.6-10.3); Globulin 2.4 g/dL (2.4-3.5); Potassium 4.3 mEq/L (3.5-5.1); Total Protein 6.1 g/dL (6.4-8.9)
[2018-08-10] MEDS: 0.9 % Sodium Chloride 1,000 ML IVC SCH (06:37)
[2018-08-10] MEDS: Insulin LISPRO 300 UNITS/3 ML VIAL SQ SCH ×2 (08:56→12:27)
[2018-08-10] MEDS: Loratadine 10 MG TABLET PO SCH (09:37)
[2018-08-10] MEDS: *HR* LORazepam 1 MG TABLET PO SCH (09:38)
[2018-08-10] MEDS: Cholecalciferol (D-3) 1,000 UNIT TABLET PO SCH (09:38)
[2018-08-10 11:53] VITALS: BP 118/66
--- NOTE | 2018-08-10 14:16 | Discharge Summary ---
- NOTES TO OUTPATIENT PROVIDER Notes to Outpatient Provider: Needs to closely follow hemoglobin as well as renal function. YAZAN on CK D improving however not at baseline. Lisinopril held for the same. Patient will need GI follow-up for low hemoglobin as last colonoscopy in about 5 years before. Date of Encounter: 08/10/18 Time of Encounter: 14:14 - Discharge Diagnosis (1) Abdominal pain Priority: Primary Status: Acute Qualifiers: Abdominal location: generalized Qualified Code(s): R10.84 - Generalized abdominal pain (2) Nausea and vomiting Priority: Primary Status: Acute Qualifiers: Vomiting type: cyclical vomiting Vomiting Intractability: non-intractable Qualified Code(s): G43.A0 - Cyclical vomiting, not intractable (3) CKD (chronic kidney disease) stage 4, GFR 15-29 ml/min Priority: Secondary Status: Chronic (4) HTN (hypertension) Priority: Secondary Status: Chronic Qualifiers: Hypertension type: essential hypertension Qualified Code(s): I10 - Essential (primary) hypertension (5) HLD (hyperlipidemia) Priority: Secondary Status: Chronic Qualifiers: Hyperlipidemia type: pure hypercholesterolemia Qualified Code(s): E78.00 - Pure hypercholesterolemia, unspecified; E78.0 - Pure hypercholesterolemia (6) Cholelithiasis Priority: Secondary Status: Acute Qualifiers: Cholelithiasis location: bile duct Cholecystitis presence: without cholecystitis Biliary obstruction: without biliary obstruction Qualified Code(s): K80.50 - Calculus of bile duct without cholangitis or cholecystitis without obstruction (7) Gout Priority: Secondary Status: Chronic Qualifiers: Gout site: unspecified site Gout etiology: due to renal impairment Chronicity: chronic Presence of tophus: without tophus Qualified Code(s): M1A.30X0 - Chronic gout due to renal impairment, unspecified site, without tophus (tophi) (8) DVT prophylaxis Priority: Secondary Status: Acute (9) Diabetes Priority: Secondary Status: Chronic Qualifiers: Diabetes mellitus type: type 2 Diabetes mellitus director long term care insulin use: without director long term care use Diabetes mellitus complication status: with kidney complications Diabetes mellitus complication detail: with chronic kidney disease Chronic kidney disease stage: stage 4 (severe) Qualified Code(s): E11.22 - Type 2 diabetes mellitus with diabetic chronic kidney disease; N18.4 - Chronic kidney disease, stage 4 (severe) (10) Mood disorder Priority: Secondary Status: Acute Hospital course: Mr. Rodriguez is a 63 year old male with past medical history of diabetes, hypertension, hyperlipidemia, security, gout, depression came from OR with abdominal pain, nausea and vomiting for [address] showing signs of high- grade partial versus early complete small bowel obstruction. It also showed cholelithiasis and probable choledocholithiasis. Patient was kept nothing by mouth and surgery was consulted. Patient had abdominal x-ray follow-up as well as small bowel follow-through study. Small bowel follow-through study showed normal transit time. Ultrasound right upper quadrant did not show any cholelithiasis cholecystitis. Normal CBD. Patient will diet was advanced to clear liquids and later to regular diet which patient tolerated well. Was asymptomatic for past 2 days. No surgical intervention were indicated per surgery. Patient had a YAZAN on presentation which gradually improved with IV hydration. Patient's hemoglobin also dropped from 12.7-10.4. Patient denies any symptoms or any blood in stool. Drop in hemoglobin likely with rehydration. Patient received total 4 days of Zosyn. Patient ambulating well. Patient wanted to go home and would be discharged to home with close follow-up with with regard to his hemoglobin and renal function. Patient aware to follow- up at OR soon Discharge discussed with: patient, nurse - Time Spent with Patient Total time spent providing and/or coordinating discharge services: Greater than 30 minutes (35) - Discharge Medications Home Medications: Allopurinol [Zyloprim 100 MG] 400 mg PO DAILY 08/07/18 [History] Cetirizine HCl [Zyrtec] 10 mg PO DAILY 08/07/18 [History] Cholecalciferol (D-3) [Vitamin D] 1,000 unit PO DAILY 08/07/18 [History] Gemfibrozil [Lopid] 300 mg PO BIDWM 08/07/18 [History] GlipiZIDE [Glipizide ER] 10 mg PO BID 08/07/18 [History] Guaifenesin [Cough Syrup] 10 ml PO Q4HR PRN 08/07/18 [History] LORazepam [Ativan] 1 mg PO BID 08/07/18 [History] Loperamide HCl [Anti-Diarrheal] 2 mg PO QID PRN 08/07/18 [History] [place]-3 Fatty Acids [Fish Oil Concentrate] 1,000 mg PO DAILY 08/07/18 [History] Psyllium [Metamucil Fiber Singles Packet] 1 packet PO DAILY 08/07/18 [History] Saxagliptin HCl [Onglyza] 2.5 mg PO DAILY 08/07/18 [History] Terazosin HCl 2 mg PO HS 08/07/18 [History] risperiDONE [Risperdal] 2 mg PO HS 08/07/18 [History] Allergies/Adverse Reactions: 3 Allergy/AdvReac Type Severity Reaction Status Date / Time No Known Allergies Allergy Verified 08/07/18 16:00 Date of admission: 08/07/18 17:53 [facility] care physician: [facility] Consults: 08/09/18 09:37 Consult to Physical Therapy [CONS] Routine Comment: Evaluate, develop and implement POC Reason for Consult: please clear [facility] patient to ambulate and give rec Does patient have active BEDREST order?: No Is patient medically & hemodynamically stable?: Yes Patient assessed for mobility or mobilized this visit?: No Discharging clinician: Angelina Tyson - Constitutional Vitals: Temp Pulse Resp BP Pulse Ox 98.5 F 61 16 118/66 94 08/10/18 11:47 08/10/18 11:47 08/10/18 11:47 08/10/18 11:47 08/10/18 11:47 General appearance: Present: cooperative, mild distress (Abdominal discomfort), A&O X 3, pleasant, obese, answers questions appropriately Exam: Gen.: NAD, AO 3, morbidly obese. ENT: Mucosal membranes moist, No JVD, no lymphadenopathy RS: Lungs are clear to auscultation bilaterally without any wheezing rhonchi or rales CVS: RRR, Normal S1 and S2, no MRG Abdomen: Soft, nontender and nondistended, bowel sounds present Extremities: Trace edema. Skin: Normal color - Patient Status Disposition: Home, Self-Care Condition: Fair - Discharge Instructions Follow Up With: Jose Balderas CNP [Family Provider] - [facility],PCP [Primary Care Provider] - - Diet and Activity Activity: return to work once cleared by your PCP/specialist
[2018-08-10] MEDS ORDERED: risperiDONE 1 MG TABLET PO SCH (21:00)
--- NOTE | 2018-08-14 20:55 | Electrocardiograph Report ---
[address] [address] Test Date: 2018-08-07 Pat Name: Vitor Rodriguez Department: EXAM1 Room: 3A33 Gender: M [employer]: : [id number] Requested By: Miguelangel Pierson Order Number: [id number] Reading MD: Reagan Watson Measurements Intervals [place] Rate: 96 P: 55 [place]: 175 QRS: -50 QRSD: 155 T: 67 QT: 411 QTc: 520 Interpretive Statements Sinus rhythm with PVCs RBBB and LAFB Low voltage on precordial leads Electronically Signed On 08-14-2018 20:54:21 EDT by Reagan Watson
== END 2018-08-10 16:24 | disposition home or self-care (01) | DRG 389 ==
LOC: EMEROOARM 14:09 → 3ANU 14:09 → SUATTDRO 17:53
PROVIDERS: ADMIT Internal Medicine; ATTEND Internal Medicine

== ENCOUNTER 2019-10-28 14:58 | Inpatient (IN) ==
[2019-10-28] MEDS ORDERED: 0.9 % Sodium Chloride 1,000 ML IVC ONE (15:04)
[2019-10-28] MEDS ORDERED: Isovue-370 500 ML BOTTLE IVP ONE (15:05)
[2019-10-28 15:53] LABS: Basophils % 0.3 %; Eosinophils # 0.1 K/mcL (0.0-0.6); Eosinophils % 1.8 %; Hematocrit 41.4 % (37.5-50.1); Hemoglobin 13.9 g/dL (12.9-16.9); Immature Granulocytes % 0.3 % (0-4); Lymphocytes % 29.1 %; Mean Corpuscular HGB Conc 33.6 g/dL (31.6-35.5); Mean Corpuscular Hemoglobin 32.8 pg (28.0-33.3); Mean Corpuscular Volume 97.6 fL (83.0-100.0); Mean Platelet Volume 10.7 fL (9.4-12.4); Monocytes # 0.7 K/mcL (0.0-1.3); Monocytes % 10.3 %; Neutrophils # 3.9 K/mcL (1.6-8.9); Platelet Count 110 K/mcL (140-400); Red Blood Count 4.24 M/mcL (4.19-5.50); Red Cell Distribution Width 13.4 % (11.5-14.5); Segmented Neutrophils % 58.2 %; White Blood Count 6.7 K/mcL (4.3-11.1)
[2019-10-28 15:59] LABS: INR 1.3; Prothrombin Time 14.3 Seconds (9.4-12.1)
[2019-10-28 16:12] LABS: Albumin 4.8 g/dL (3.5-5.7); Albumin/Globulin Ratio 1.5 (1.1-2.2); Bilirubin,Direct 0.4 mg/dL (0.0-0.2); Bilirubin,Total 1.4 mg/dL (0.3-1.0); Calcium 9.9 mg/dL (8.6-10.3); Globulin 3.3 g/dL (2.4-3.5); Potassium 4.6 mEq/L (3.5-5.1); Total Protein 8.1 g/dL (6.4-8.9)
[2019-10-28 16:47] LABS: Bilirubin,Urine Negative (Negative); Blood,Urine Negative (Negative); Clarity,Urine Clear (Clear); Color,Urine Yellow (Yellow); Glucose,Urine (UA) Normal (Normal); Ketones,Urine Negative (Negative); Leukocyte Esterase,Urine Negative (Negative); Nitrite,Urine Negative (Negative); Protein,Urine 30 mg/dL (Neg-Trace); Specific Gravity,Urine 1.019 (1.010-1.025); Urobilinogen,Urine Normal (Normal)
[2019-10-28 16:50] LABS: Bacteria,Urine None Seen per hpf (None-Few); Hyaline Casts,Urine None Seen per lpf (None-Few); Squamous Epithelial Cell,Urine Few per lpf (None-Few); WBC,Urine 0-3 per hpf (0-3)
[2019-10-28] MEDS ORDERED: Naloxone 0.4 MG/ML INJ IVP PRN (18:07)
[2019-10-28] MEDS ORDERED: Ondansetron 4 MG/2 ML VIAL IVP PRN (18:07)
[2019-10-28] MEDS ORDERED: *HR* HYDROmorphone (PF) 1 MG/ML SYRINGE IVP PRN (18:10)
[2019-10-28] MEDS ORDERED: 0.9 % Sodium Chloride 1,000 ML IVC SCH (18:15)
[2019-10-28] MEDS ORDERED: *HR* Dextrose 50 % in Water (Syg) 50 ML SYRINGE IVP PRN (18:21)
[2019-10-28] MEDS ORDERED: Dextrose Gel 15 GM/37.5 ML TUBE PO PRN ×2 (18:21)
[2019-10-28] MEDS ORDERED: D5% in Water 1,000 ML IVC PRN (18:21)
[2019-10-28] MEDS ORDERED: *HR* Metoprolol 5 MG/5 ML VIAL IVP PRN (18:23)
[2019-10-28] MEDS ORDERED: Insulin LISPRO 300 UNITS/3 ML VIAL SQ SCH (18:30)
[2019-10-28] MEDS: *HR* Heparin 5,000 UNIT/ML VIAL SQ SCH (22:21)
[2019-10-29] MEDS: Insulin LISPRO 300 UNITS/3 ML VIAL SQ SCH ×4 (05:45→17:32)
[2019-10-29] MEDS: *HR* Heparin 5,000 UNIT/ML VIAL SQ SCH ×3 (06:01→22:35)
[2019-10-29 07:01] LABS: Basophils % 0.3 %; Eosinophils # 0.2 K/mcL (0.0-0.6); Eosinophils % 2.5 %; Hematocrit 40.8 % (37.5-50.1); Hemoglobin 13.4 g/dL (12.9-16.9); Immature Granulocytes % 0.2 % (0-4); Lymphocytes # 2.2 K/mcL (0.6-4.6); Lymphocytes % 34.5 %; Mean Corpuscular HGB Conc 32.8 g/dL (31.6-35.5); Mean Corpuscular Hemoglobin 31.5 pg (28.0-33.3); Mean Corpuscular Volume 95.8 fL (83.0-100.0); Mean Platelet Volume 10.9 fL (9.4-12.4); Monocytes # 0.7 K/mcL (0.0-1.3); Monocytes % 10.3 %; Neutrophils # 3.4 K/mcL (1.6-8.9); Platelet Count 111 K/mcL (140-400); Red Blood Count 4.26 M/mcL (4.19-5.50); Red Cell Distribution Width 13.3 % (11.5-14.5); Segmented Neutrophils % 52.2 %; White Blood Count 6.5 K/mcL (4.3-11.1)
[2019-10-29 07:18] LABS: Calcium 9.6 mg/dL (8.6-10.3); Potassium 4.2 mEq/L (3.5-5.1)
[2019-10-29] MEDS ORDERED: 0.9 % Sodium Chloride 1,000 ML IVC SCH (10:13)
[2019-10-29] MEDS: 0.9 % Sodium Chloride 1,000 ML IVC SCH ×2 (11:48→22:36)
[2019-10-30] MEDS: Insulin LISPRO 300 UNITS/3 ML VIAL SQ SCH ×5 (02:35→23:12)
[2019-10-30] MEDS: 0.9 % Sodium Chloride 1,000 ML IVC SCH ×2 (04:27→12:37)
[2019-10-30] MEDS: *HR* Heparin 5,000 UNIT/ML VIAL SQ SCH ×3 (08:27→21:28)
[2019-10-30 12:20] LABS: Calcium 8.9 mg/dL (8.6-10.3); Potassium 3.9 mEq/L (3.5-5.1)
[2019-10-31] MEDS: 0.9 % Sodium Chloride 1,000 ML IVC SCH ×3 (00:50→17:31)
[2019-10-31] MEDS: Insulin LISPRO 300 UNITS/3 ML VIAL SQ SCH ×3 (05:33→16:53)
[2019-10-31] MEDS: *HR* Heparin 5,000 UNIT/ML VIAL SQ SCH ×3 (05:33→20:30)
[2019-10-31 08:11] LABS: Calcium 9.2 mg/dL (8.6-10.3); Potassium 3.7 mEq/L (3.5-5.1)
[2019-10-31] MEDS: *HR* LORazepam 1 MG TABLET PO SCH (20:30)
[2019-10-31] MEDS ORDERED: risperiDONE 1 MG TABLET PO SCH (21:00)
[2019-11-01] MEDS: Insulin LISPRO 300 UNITS/3 ML VIAL SQ SCH ×2 (00:35→05:58)
[2019-11-01] MEDS: 0.9 % Sodium Chloride 1,000 ML IVC SCH ×2 (00:39→09:35)
[2019-11-01 04:45] LABS: Calcium 9.1 mg/dL (8.6-10.3)
[2019-11-01] MEDS: *HR* Heparin 5,000 UNIT/ML VIAL SQ SCH (05:58)
[2019-11-01 07:31] VITALS: BP 117/69
[2019-11-01] MEDS: *HR* LORazepam 1 MG TABLET PO SCH (09:36)
== END 2019-11-01 14:17 | disposition home or self-care (01) | DRG 389 ==
LOC: 3ANU 14:58 → EMEROOARM 14:58 → SUATTDRO 19:26 → 3ANU 20:17
PROVIDERS: ADMIT Family Medicine; ATTEND Family Medicine

== ENCOUNTER 2019-11-03 11:43 | Observation (INO) ==
[2019-11-03] MEDS ORDERED: 0.9 % Sodium Chloride 1,000 ML IVC ONE (11:55)
[2019-11-03 14:45] LABS: VBG HCO3 25 mEq/L (21-27); VBG PCO2 54 mmHg (41-51); VBG PH 7.28 pH Units (7.32-7.42); VBG PO2 65 mmHg (25-50)
[2019-11-03] MEDS ORDERED: Naloxone 0.4 MG/ML INJ IVP PRN (17:32)
[2019-11-03] MEDS ORDERED: Ondansetron 4 MG/2 ML VIAL IVP PRN (17:32)
[2019-11-03] MEDS ORDERED: Acetaminophen 325 MG TABLET PO PRN (17:32)
[2019-11-03] MEDS ORDERED: *HR* HYDROcodone/Acet 5/325 mg TABLET PO PRN (17:32)
[2019-11-03] MEDS ORDERED: D5% in Water 1,000 ML IVC PRN (17:35)
[2019-11-03] MEDS ORDERED: Dextrose Gel 15 GM/37.5 ML TUBE PO PRN ×2 (17:35)
[2019-11-03] MEDS ORDERED: *HR* Dextrose 50 % in Water (Syg) 50 ML SYRINGE IVP PRN (17:35)
[2019-11-03] MEDS ORDERED: Ringers Solution, Lactated 1,000 ML IVC SCH (17:45)
[2019-11-03] MEDS ORDERED: Ipratropium/Albuterol Neb 3 ML IH PRN (17:49)
[2019-11-03] MEDS: Ipratropium/Albuterol Neb 3 ML IH SCH (19:49)
[2019-11-03] MEDS ORDERED: NON-FORMULARY MEDICATION 1 EACH EACH (Omega-3 Fatty Acids [Fish Oil Concentrate] 1,000 MG) PO SCH (21:00)
[2019-11-03] MEDS ORDERED: risperiDONE 1 MG TABLET PO SCH (21:00)
[2019-11-03] MEDS: *HR* Heparin 5,000 UNIT/ML VIAL SQ SCH (21:15)
[2019-11-03] MEDS: *HR* LORazepam 1 MG TABLET PO SCH (21:16)
[2019-11-03] MEDS: Insulin LISPRO 300 UNITS/3 ML VIAL SQ SCH (21:20)
[2019-11-04] MEDS: Ipratropium/Albuterol Neb 3 ML IH SCH ×6 (00:01→19:43)
[2019-11-04] MEDS: Metoclopramide 10 MG/2 ML VIAL IVP SCH ×4 (00:18→18:04)
[2019-11-04] MEDS: Insulin LISPRO 300 UNITS/3 ML VIAL SQ SCH ×4 (00:26→21:22)
[2019-11-04 02:08] LABS: VBG HCO3 25 mEq/L (21-27); VBG PCO2 56 mmHg (41-51); VBG PH 7.25 pH Units (7.32-7.42); VBG PO2 100 mmHg (25-50)
[2019-11-04 02:19] LABS: Basophils % 0.1 %; Eosinophils # 0.2 K/mcL (0.0-0.6); Eosinophils % 2.4 %; Hematocrit 35.1 % (37.5-50.1); Immature Granulocytes % 0.4 % (0-4); Lymphocytes # 2.2 K/mcL (0.6-4.6); Mean Corpuscular HGB Conc 32.8 g/dL (31.6-35.5); Mean Corpuscular Hemoglobin 32.4 pg (28.0-33.3); Mean Corpuscular Volume 98.9 fL (83.0-100.0); Mean Platelet Volume 10.1 fL (9.4-12.4); Monocytes # 0.4 K/mcL (0.0-1.3); Monocytes % 6.3 %; Neutrophils # 4.1 K/mcL (1.6-8.9); Platelet Count 113 K/mcL (140-400); Red Blood Count 3.55 M/mcL (4.19-5.50); Red Cell Distribution Width 13.6 % (11.5-14.5); Segmented Neutrophils % 58.8 %
[2019-11-04 02:27] LABS: Hemoglobin 11.5 g/dL (12.9-16.9)
[2019-11-04 02:31] LABS: Calcium 8.7 mg/dL (8.6-10.3); Magnesium 1.7 mg/dL (1.6-2.6); Potassium 3.7 mEq/L (3.5-5.1)
[2019-11-04] MEDS: *HR* Heparin 5,000 UNIT/ML VIAL SQ SCH ×2 (05:02→18:04)
[2019-11-04] MEDS: Psyllium 1 PACKET POWD.PACK PO SCH (10:04)
[2019-11-04] MEDS: Loratadine 10 MG TABLET PO SCH (10:04)
[2019-11-04] MEDS: *HR* LORazepam 1 MG TABLET PO SCH ×2 (10:04→21:22)
[2019-11-04] MEDS: Cholecalciferol (D-3) 1,000 UNIT (25MCG) TABLET PO SCH (10:05)
[2019-11-04] MEDS: Lisinopril 20 MG TABLET PO SCH (10:05)
[2019-11-04] MEDS: MethylPREDNISolone 40 MG/ML VIAL IVP SCH (13:00)
[2019-11-05] MEDS: Ipratropium/Albuterol Neb 3 ML IH SCH ×7 (00:13→23:58)
[2019-11-05] MEDS: Metoclopramide 10 MG/2 ML VIAL IVP SCH ×4 (00:56→17:28)
[2019-11-05] MEDS: *HR* Heparin 5,000 UNIT/ML VIAL SQ SCH ×2 (06:30→17:35)
[2019-11-05 07:44] LABS: White Blood Count 7.8 K/mcL (4.3-11.1)
[2019-11-05 07:45] LABS: Basophils % 0.1 %; Eosinophils % 0.1 %; Hematocrit 33.2 % (37.5-50.1); Hemoglobin 11.3 g/dL (12.9-16.9); Lymphocytes # 1.1 K/mcL (0.6-4.6); Lymphocytes % 13.6 %; Mean Corpuscular Hemoglobin 32.9 pg (28.0-33.3); Mean Corpuscular Volume 96.8 fL (83.0-100.0); Mean Platelet Volume 10.3 fL (9.4-12.4); Monocytes # 0.2 K/mcL (0.0-1.3); Monocytes % 2.8 %; Neutrophils # 6.4 K/mcL (1.6-8.9); Platelet Count 114 K/mcL (140-400); Red Blood Count 3.43 M/mcL (4.19-5.50); Red Cell Distribution Width 13.3 % (11.5-14.5); Segmented Neutrophils % 82.4 %
[2019-11-05 07:54] LABS: VBG HCO3 25 mEq/L (21-27); VBG PCO2 54 mmHg (41-51); VBG PH 7.28 pH Units (7.32-7.42); VBG PO2 181 mmHg (25-50)
[2019-11-05 08:04] LABS: Calcium 9.3 mg/dL (8.6-10.3); Potassium 4.1 mEq/L (3.5-5.1)
[2019-11-05] MEDS: Psyllium 1 PACKET POWD.PACK PO SCH (09:46)
[2019-11-05] MEDS: Cholecalciferol (D-3) 1,000 UNIT (25MCG) TABLET PO SCH (09:47)
[2019-11-05] MEDS: *HR* LORazepam 1 MG TABLET PO SCH ×2 (09:47→20:04)
[2019-11-05] MEDS: MethylPREDNISolone 40 MG/ML VIAL IVP SCH (09:47)
[2019-11-05] MEDS: Lisinopril 20 MG TABLET PO SCH (09:47)
[2019-11-05] MEDS: Insulin LISPRO 300 UNITS/3 ML VIAL SQ SCH ×4 (09:48→20:03)
[2019-11-05] MEDS: Loratadine 10 MG TABLET PO SCH (10:08)
[2019-11-06] MEDS: Metoclopramide 10 MG/2 ML VIAL IVP SCH ×3 (01:46→12:20)
[2019-11-06] MEDS: Ipratropium/Albuterol Neb 3 ML IH SCH ×3 (03:43→11:22)
[2019-11-06 04:54] LABS: Basophils % 0.1 %; Eosinophils % 0.1 %; Hematocrit 31.5 % (37.5-50.1); Hemoglobin 11.2 g/dL (12.9-16.9); Immature Granulocytes % 1.3 % (0-4); Lymphocytes # 1.1 K/mcL (0.6-4.6); Lymphocytes % 12.1 %; Mean Corpuscular HGB Conc 35.6 g/dL (31.6-35.5); Mean Corpuscular Hemoglobin 32.4 pg (28.0-33.3); Monocytes # 0.3 K/mcL (0.0-1.3); Monocytes % 3.6 %; Neutrophils # 7.8 K/mcL (1.6-8.9); Platelet Count 128 K/mcL (140-400); Red Blood Count 3.46 M/mcL (4.19-5.50); Red Cell Distribution Width 13.2 % (11.5-14.5); Segmented Neutrophils % 82.8 %; White Blood Count 9.4 K/mcL (4.3-11.1)
[2019-11-06 04:54] LABS: VBG HCO3 25 mEq/L (21-27); VBG PCO2 44 mmHg (41-51); VBG PH 7.36 pH Units (7.32-7.42); VBG PO2 169 mmHg (25-50)
[2019-11-06 05:11] LABS: Calcium 9.1 mg/dL (8.6-10.3); Potassium 3.8 mEq/L (3.5-5.1)
[2019-11-06] MEDS: *HR* Heparin 5,000 UNIT/ML VIAL SQ SCH (06:02)
[2019-11-06 06:59] VITALS: BP 137/79
[2019-11-06] MEDS: Insulin LISPRO 300 UNITS/3 ML VIAL SQ SCH ×2 (09:28→12:20)
[2019-11-06] MEDS: Loratadine 10 MG TABLET PO SCH (09:29)
[2019-11-06] MEDS: Psyllium 1 PACKET POWD.PACK PO SCH (09:29)
[2019-11-06] MEDS: Lisinopril 20 MG TABLET PO SCH (09:29)
[2019-11-06] MEDS: Cholecalciferol (D-3) 1,000 UNIT (25MCG) TABLET PO SCH (09:29)
[2019-11-06] MEDS: *HR* LORazepam 1 MG TABLET PO SCH (09:29)
[2019-11-06] MEDS: MethylPREDNISolone 40 MG/ML VIAL IVP SCH (09:29)
== END 2019-11-06 14:52 | disposition other institution (70) ==
LOC: EMEROOARM 11:43 → 2NENU 11:43 → SUATTDRO 17:39 → 2NENU 18:23
PROVIDERS: ADMIT Internal Medicine; ATTEND Internal Medicine

== ENCOUNTER 2019-11-15 11:11 | Inpatient (IN) ==
[2019-11-15] MEDS ORDERED: 0.9 % Sodium Chloride 1,000 ML IVC ONE ×2 (11:32→12:01)
[2019-11-15] MEDS ORDERED: Ondansetron 4 MG/2 ML VIAL IVP PRN ×2 (12:02→14:36)
[2019-11-15 12:11] LABS: Basophils % 0.2 %; Eosinophils % 0.1 %; Hematocrit 40.5 % (37.5-50.1); Hemoglobin 13.7 g/dL (12.9-16.9); Immature Granulocytes % 0.5 % (0-4); Lymphocytes # 0.8 K/mcL (0.6-4.6); Lymphocytes % 6.1 %; Mean Corpuscular HGB Conc 33.8 g/dL (31.6-35.5); Mean Corpuscular Hemoglobin 32.1 pg (28.0-33.3); Mean Corpuscular Volume 94.8 fL (83.0-100.0); Mean Platelet Volume 10.6 fL (9.4-12.4); Monocytes # 0.8 K/mcL (0.0-1.3); Monocytes % 5.5 %; Neutrophils # 11.9 K/mcL (1.6-8.9); Platelet Count 123 K/mcL (140-400); Red Blood Count 4.27 M/mcL (4.19-5.50); Red Cell Distribution Width 13.3 % (11.5-14.5); Segmented Neutrophils % 87.6 %; White Blood Count 13.6 K/mcL (4.3-11.1)
[2019-11-15 12:16] LABS: INR 1.2; Prothrombin Time 13.6 Seconds (9.4-12.1)
[2019-11-15 12:25] LABS: Albumin 4.3 g/dL (3.5-5.7); Albumin/Globulin Ratio 1.6 (1.1-2.2); Bilirubin,Total 0.9 mg/dL (0.3-1.0); Calcium 9.4 mg/dL (8.6-10.3); Globulin 2.7 g/dL (2.4-3.5); Magnesium 1.8 mg/dL (1.6-2.6); Phosphorous 1.3 mg/dL (2.7-4.5); Potassium 4.9 mEq/L (3.5-5.1)
[2019-11-15 12:36] LABS: Troponin I < 0.03 ng/mL (< 0.04)
[2019-11-15] MEDS: 0.9 % Sodium Chloride 1,000 ML IVC SCH ×2 (13:17→20:28)
[2019-11-15] MEDS ORDERED: cefTRIAXone 1,000 MG in 0.9 % Sodium Chloride Mini Bag 100 ML IVPB ONE (13:19)
[2019-11-15 13:36] LABS: Bilirubin,Urine Small (Negative); Blood,Urine Negative (Negative); Clarity,Urine Clear (Clear); Color,Urine Yellow (Yellow); Glucose,Urine (UA) Normal (Normal); Ketones,Urine Negative (Negative); Leukocyte Esterase,Urine Negative (Negative); Nitrite,Urine Negative (Negative); PH,Urine 5.5 pH Units (5.0-8.0); Protein,Urine 100 mg/dL (Neg-Trace); Specific Gravity,Urine 1.015 (1.010-1.025); Urobilinogen,Urine Normal (Normal)
[2019-11-15 13:43] LABS: Squamous Epithelial Cell,Urine Many per lpf (None-Few)
[2019-11-15 13:55] LABS: Bacteria,Urine Few per hpf (None-Few); Hyaline Casts,Urine Few per lpf (None-Few)
[2019-11-15 13:56] LABS: Sperm,Urine Present (None Seen)
[2019-11-15] MEDS ORDERED: Piperacillin/Tazobactam 3.375 GM in 0.9 % Sodium Chloride Mini Bag 100 ML IVPB ONE (14:00)
[2019-11-15] MEDS ORDERED: 0.9 % Sodium Chloride 250 ML ONE (14:07)
[2019-11-15] MEDS ORDERED: *HR* Norepinephrine 4 MG/4 ML VIAL IVC ONE (14:08)
[2019-11-15] MEDS: Norepinephrine 4 MG in 0.9 % Sodium Chloride 250 ML IVC SCH (14:17)
[2019-11-15] MEDS ORDERED: Hydrocortisone Sodium Succ 100 MG/2 ML VIAL IVP ONE (14:30)
[2019-11-15] MEDS ORDERED: Acetaminophen 650 MG RECTAL SUPP RC PRN (14:31)
[2019-11-15] MEDS ORDERED: Naloxone 0.4 MG/ML INJ IVP PRN (14:31)
[2019-11-15] MEDS ORDERED: D5% in Water 1,000 ML IVC PRN (14:40)
[2019-11-15] MEDS ORDERED: *HR* Dextrose 50 % in Water (Syg) 50 ML SYRINGE IVP PRN (14:40)
[2019-11-15] MEDS ORDERED: Dextrose Gel 15 GM/37.5 ML TUBE PO PRN ×2 (14:40)
[2019-11-15] MEDS: Ringers Solution, Lactated 1,000 ML IVC SCH ×2 (15:19→22:22)
[2019-11-15 15:25] LABS: Creatine Kinase 175 Units/L (30-223)
[2019-11-15] MEDS: Pantoprazole 40 MG VIAL IVP SCH (17:24)
[2019-11-15] MEDS: *HR* Heparin 5,000 UNIT/ML VIAL SQ SCH ×2 (17:24→20:28)
[2019-11-15 17:59] LABS: Calcium 8.3 mg/dL (8.6-10.3); Potassium 6.2 mEq/L (3.5-5.1)
[2019-11-15] MEDS: Piperacillin/Tazobactam 3.375 GM in 0.9 % Sodium Chloride Mini Bag 100 ML IVPB SCH (20:27)
[2019-11-15] MEDS: *HR* LORazepam 1 MG TABLET PO SCH (20:27)
[2019-11-15] MEDS: Insulin LISPRO 300 UNITS/3 ML VIAL SQ SCH (20:28)
[2019-11-15] MEDS ORDERED: risperiDONE 1 MG TABLET PO SCH (21:00)
[2019-11-15] MEDS ORDERED: Calcium Gluconate 1gm/50mL 1 GM/50 ML BAG IVPB ONE (23:28)
[2019-11-15] MEDS ORDERED: Insulin LISPRO 300 UNITS/3 ML VIAL SQ ONE (23:45)
[2019-11-15] MEDS ORDERED: Dextrose 50 % in Water (Vial) 50 ML in D5% in 0.2% NACL 500 ML IVC SCH (23:45)
[2019-11-16] MEDS ORDERED: Insulin Human Regular 10 UNIT in 0.9 % Sodium Chloride 10 ML IV ONE (00:15)
[2019-11-16] MEDS: Insulin LISPRO 300 UNITS/3 ML VIAL SQ SCH ×3 (01:15→11:22)
[2019-11-16] MEDS: Norepinephrine 4 MG in 0.9 % Sodium Chloride 250 ML IVC SCH (01:23)
[2019-11-16 01:57] LABS: Adenovirus Not Detected (Not Detect); Bordetella Pertussis Not Detected (Not Detect); Chlamydophila pneumoniae Not Detected (Not Detect); Coronavirus 229E Not Detected (Not Detect); Coronavirus HKU1 Not Detected (Not Detect); Coronavirus NL63 Not Detected (Not Detect); Coronavirus OC43 Not Detected (Not Detect); Human Metapneumovirus Not Detected (Not Detect); Human Rhinovirus/Enterovirus Not Detected (Not Detect); Influenza A Subtype 2009 H1 Not Detected (Not Detect); Influenza B Not Detected (Not Detect); Mycoplasma pneumoniae Not Detected (Not Detect); Parainfluenza Virus 1 Not Detected (Not Detect); Parainfluenza Virus 2 Not Detected (Not Detect); Parainfluenza Virus 3 Not Detected (Not Detect); Parainfluenza Virus 4 Not Detected (Not Detect); Respiratory Syncytial Virus Not Detected (Not Detect)
[2019-11-16] MEDS: 0.9 % Sodium Chloride 1,000 ML IVC SCH ×3 (03:09→13:15)
[2019-11-16] MEDS: Ringers Solution, Lactated 1,000 ML IVC SCH (03:10)
[2019-11-16 03:53] LABS: Albumin 3.4 g/dL (3.5-5.7); Albumin/Globulin Ratio 1.7 (1.1-2.2); Bilirubin,Total 0.7 mg/dL (0.3-1.0); Calcium 8.1 mg/dL (8.6-10.3); Potassium 4.9 mEq/L (3.5-5.1); Total Protein 5.4 g/dL (6.4-8.9)
[2019-11-16 04:09] LABS: Basophils % 0.1 %; Eosinophils % 0.4 %; Hematocrit 31.5 % (37.5-50.1); Immature Granulocytes % 0.3 % (0-4); Lymphocytes # 1.5 K/mcL (0.6-4.6); Lymphocytes % 20.2 %; Mean Corpuscular HGB Conc 34.9 g/dL (31.6-35.5); Mean Corpuscular Hemoglobin 33.1 pg (28.0-33.3); Mean Corpuscular Volume 94.9 fL (83.0-100.0); Mean Platelet Volume 10.6 fL (9.4-12.4); Monocytes # 0.6 K/mcL (0.0-1.3); Monocytes % 8.2 %; Neutrophils # 5.3 K/mcL (1.6-8.9); Platelet Count 106 K/mcL (140-400); Red Blood Count 3.32 M/mcL (4.19-5.50); Red Cell Distribution Width 13.4 % (11.5-14.5); Segmented Neutrophils % 70.8 %; White Blood Count 7.5 K/mcL (4.3-11.1)
[2019-11-16] MEDS: Piperacillin/Tazobactam 3.375 GM in 0.9 % Sodium Chloride Mini Bag 100 ML IVPB SCH ×3 (05:24→20:08)
[2019-11-16] MEDS: *HR* Heparin 5,000 UNIT/ML VIAL SQ SCH ×3 (05:25→20:08)
[2019-11-16] MEDS: *HR* LORazepam 1 MG TABLET PO SCH ×2 (08:53→20:07)
[2019-11-16] MEDS: Pantoprazole 40 MG VIAL IVP SCH (08:53)
[2019-11-16] MEDS ORDERED: Loratadine 10 MG TABLET PO SCH (09:00)
[2019-11-16] MEDS ORDERED: *HR* Dextrose 50 % in Water (Syg) 50 ML SYRINGE IVP PRN (15:10)
[2019-11-16] MEDS ORDERED: D5% in Water 1,000 ML IVC PRN (15:10)
[2019-11-16] MEDS ORDERED: Naloxone 0.4 MG/ML INJ IVP PRN (15:10)
[2019-11-16] MEDS ORDERED: Ondansetron 4 MG/2 ML VIAL IVP PRN (15:10)
[2019-11-16] MEDS ORDERED: Dextrose Gel 15 GM/37.5 ML TUBE PO PRN ×2 (15:10)
[2019-11-16] MEDS: risperiDONE 1 MG TABLET PO SCH (20:07)
[2019-11-17 03:44] LABS: Red Cell Distribution Width 13.7 % (11.5-14.5)
[2019-11-17 03:46] LABS: Hematocrit 33.6 % (37.5-50.1); Hemoglobin 11.4 g/dL (12.9-16.9); Mean Corpuscular HGB Conc 33.9 g/dL (31.6-35.5); Mean Corpuscular Hemoglobin 32.9 pg (28.0-33.3); Mean Corpuscular Volume 96.8 fL (83.0-100.0); Mean Platelet Volume 10.3 fL (9.4-12.4); Red Blood Count 3.47 M/mcL (4.19-5.50); White Blood Count 6.8 K/mcL (4.3-11.1)
[2019-11-17] MEDS: Piperacillin/Tazobactam 3.375 GM in 0.9 % Sodium Chloride Mini Bag 100 ML IVPB SCH (05:15)
[2019-11-17] MEDS: *HR* Heparin 5,000 UNIT/ML VIAL SQ SCH ×3 (05:15→19:38)
[2019-11-17] MEDS: *HR* LORazepam 1 MG TABLET PO SCH ×2 (09:24→19:38)
[2019-11-17] MEDS: Loratadine 10 MG TABLET PO SCH (09:24)
[2019-11-17 11:00] LABS: Calcium 8.8 mg/dL (8.6-10.3); Potassium 4.9 mEq/L (3.5-5.1)
[2019-11-17] MEDS: Amoxicillin/Clavulanate 500 MG TABLET PO SCH (16:34)
[2019-11-17] MEDS: risperiDONE 1 MG TABLET PO SCH (19:38)
[2019-11-18 00:54] LABS: Hemoglobin 11.2 g/dL (12.9-16.9); Red Cell Distribution Width 13.6 % (11.5-14.5)
[2019-11-18 00:56] LABS: Hematocrit 33.9 % (37.5-50.1); Immature Platelets 1.4 % (1.1-6.1); Mean Corpuscular Hemoglobin 32.7 pg (28.0-33.3); Mean Corpuscular Volume 98.8 fL (83.0-100.0); Mean Platelet Volume 10.1 fL (9.4-12.4); Red Blood Count 3.43 M/mcL (4.19-5.50); White Blood Count 5.9 K/mcL (4.3-11.1)
[2019-11-18] MEDS: *HR* Heparin 5,000 UNIT/ML VIAL SQ SCH ×3 (05:21→21:45)
[2019-11-18 05:37] LABS: Calcium 8.8 mg/dL (8.6-10.3); Potassium 4.5 mEq/L (3.5-5.1)
[2019-11-18] MEDS: Amoxicillin/Clavulanate 500 MG TABLET PO SCH ×2 (07:39→15:51)
[2019-11-18] MEDS: *HR* LORazepam 1 MG TABLET PO SCH ×2 (07:39→21:45)
[2019-11-18] MEDS: Loratadine 10 MG TABLET PO SCH (07:39)
[2019-11-18] MEDS: Sodium Bicarbonate 50 MEQ in 0.45 % Sodium Chloride 1,000 ML IVC SCH (11:33)
[2019-11-18] MEDS: risperiDONE 1 MG TABLET PO SCH (21:45)
[2019-11-19] MEDS: Sodium Bicarbonate 50 MEQ in 0.45 % Sodium Chloride 1,000 ML IVC SCH (05:41)
[2019-11-19] MEDS: *HR* Heparin 5,000 UNIT/ML VIAL SQ SCH (05:42)
[2019-11-19 07:07] VITALS: BP 129/79
[2019-11-19 07:21] LABS: Basophils % 0.4 %; Eosinophils # 0.2 K/mcL (0.0-0.6); Eosinophils % 3.1 %; Hematocrit 33.3 % (37.5-50.1); Hemoglobin 11.3 g/dL (12.9-16.9); Immature Granulocytes % 0.2 % (0-4); Lymphocytes % 38.1 %; Mean Corpuscular HGB Conc 33.9 g/dL (31.6-35.5); Mean Corpuscular Hemoglobin 32.6 pg (28.0-33.3); Mean Platelet Volume 10.4 fL (9.4-12.4); Monocytes # 0.3 K/mcL (0.0-1.3); Monocytes % 6.3 %; Neutrophils # 2.7 K/mcL (1.6-8.9); Platelet Count 102 K/mcL (140-400); Red Blood Count 3.47 M/mcL (4.19-5.50); Red Cell Distribution Width 13.4 % (11.5-14.5); Segmented Neutrophils % 51.9 %; White Blood Count 5.1 K/mcL (4.3-11.1)
[2019-11-19 07:40] LABS: Calcium 9.2 mg/dL (8.6-10.3); Magnesium 1.5 mg/dL (1.6-2.6); Phosphorous 4.1 mg/dL (2.7-4.5); Potassium 4.2 mEq/L (3.5-5.1)
[2019-11-19] MEDS: *HR* LORazepam 1 MG TABLET PO SCH (10:01)
[2019-11-19] MEDS: Amoxicillin/Clavulanate 500 MG TABLET PO SCH (10:01)
[2019-11-19] MEDS: Loratadine 10 MG TABLET PO SCH (10:01)
== END 2019-11-19 14:48 | disposition other institution (70) | DRG 871 ==
LOC: EMEROOARM 11:11 → SUATTDRO 18:31 → ICNU 18:31 → 3BNU 11-17 16:05
PROVIDERS: ADMIT Internal Medicine; ATTEND Internal Medicine